=== PATIENT | female | born 1985 | race Caucasian/White ===

== ENCOUNTER 2016-09-21 13:45 | Outpatient (CLI) | payer MEDICAID | END 2016-09-21 13:46 | disposition home or self-care (01) | DX: M79.1 Myalgia (principal); G25.81 Restless legs syndrome; Z13.0 Encounter for screening for diseases of the blood and blood-forming organs and certain disorders involving the immune mechanism ==

== ENCOUNTER 2016-11-02 09:01 | Outpatient (CLI) | payer MEDICAID | END 2016-11-02 09:02 | disposition home or self-care (01) | DX: Z53.9 Procedure and treatment not carried out, unspecified reason (principal) ==

== ENCOUNTER 2016-11-05 14:27 | Outpatient (CLI) | payer MEDICAID | END 2016-11-05 14:28 | disposition home or self-care (01) | DX: M25.561 Pain in right knee (principal) ==

== ENCOUNTER 2016-11-09 16:51 | Emergency (ER) | payer MEDICAID ==
[2016-11-09] MEDS ORDERED: IBUPROFEN 800 MG TABLET PO STA (17:18)
[2016-11-09] MEDS ORDERED: ALBUTEROL 8 GM INHALER INH STA (17:18)
[2016-11-09] MEDS ORDERED: IBUPROFEN 800 MG TABLET PO ONE (17:25)
[2016-11-09] MEDS ORDERED: IPRATROPIUM/ALBUTEROL 3 ML NEB INH STA (17:26)
[2016-11-09] MEDS ORDERED: ALBUTEROL NEB 2.5 MG/3 ML INH ONE (17:28)
[2016-11-09] MEDS ORDERED: IPRATROPIUM/ALBUTEROL 3 ML NEB INH ONE (17:30)
== END 2016-11-09 17:56 | disposition home or self-care (01) ==
DX: J20.9 Acute bronchitis, unspecified (principal); J06.9 Acute upper respiratory infection, unspecified; K21.9 Gastro-esophageal reflux disease without esophagitis; F17.200 Nicotine dependence, unspecified, uncomplicated
CPT/HCPCS: 94640; 99283; A9270; J7620

== ENCOUNTER 2016-11-22 14:35 | Outpatient (CLI) | payer MEDICAID | END 2016-11-22 14:36 | disposition home or self-care (01) | DX: M47.897 Other spondylosis, lumbosacral region (principal) ==

== ENCOUNTER 2016-11-24 09:24 | Outpatient (CLI) | payer MEDICAID | END 2016-11-24 09:25 | disposition home or self-care (01) | DX: R60.0 Localized edema (principal); R73.9 Hyperglycemia, unspecified; M25.50 Pain in unspecified joint ==

== ENCOUNTER 2017-01-14 19:39 | Emergency (ER) | payer MEDICAID ==
[2017-01-14] MEDS ORDERED: oxyCOD/ACETAMIN 5 MG/325 MG TABLET PO STA (20:22)
--- NOTE | 2017-01-14 20:22 | ED Physician Documentation ---
PD HPI LOWER EXT INJURY - Stated complaint Stated Complaint: RT KNEE PX - Chief complaint Chief Complaint: Ext Problem - History obtained from History obtained from: Patient - History of Present Illness PD HPI LOW EXT INJURY LOCATION: Other (Long-standing pain behind the right patella for the last many years, negative x-rays a few months ago. Got worse today when she lightly banged her knee on something. 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, Other - Present Medications Home Medications: Ambulatory Orders Medication Instructions Recorded Confirmed Albuterol Sulfate [Proventil Hfa 1 - 2 puffs INH Q4H PRN #1 inhaler 11/09/16 Inhaler] Inhaler, Assist Devices [Aerovent 1 each MC PRN PRN #1 spacer 11/09/16 Plus] Oxycodone HCl/Acetaminophen 1 - 2 tab PO Q4H PRN #15 tablet 01/14/17 [Percocet 5-325 mg Tablet] - Allergies Allergies/Adverse Reactions: Allergies Allergy/AdvReac Type Severity Reaction Status Date / Time No Known Drug Allergies Allergy Verified 01/26/16 18:52 - Social History Does the pt smoke?: Yes Smoking Status: Current every day smoker Does the pt drink ETOH?: No Does the pt have substance abuse?: No - Immunizations Immunizations are current?: Yes Immunizations: TDAP >10years/unknown - POLST Patient has POLST: No PD ED PE NORMAL - Vitals Vital signs reviewed: Yes - General General: Alert and oriented X 3, No acute distress - Extremities Extremities: No calf tenderness / cord, Other (There is a small effusion of the right knee and she has crepitance behind the patella but no bony tenderness. Good range of motion.) - Neuro Neuro: Alert and oriented X 3, Normal speech - Psych Psych: Normal mood, Normal affect Results - Vitals Vitals: Vital Signs - 24 hr 01/14/17 19:44 Temperature 36.9 C Heart Rate 109 H Respiratory 18 Rate Blood Pressure 131/90 H O2 Saturation 98 Oxygen O2 Source Room air PD MEDICAL DECISION MAKING - ED course ED course: She seems to have chondromalacia or PFS or similar of the right knee. No new major trauma so I do not think repeat x-rays are in order but advised orthopedic follow-up. Departure - Departure Disposition: Home, Self Care Clinical Impression: Patellofemoral arthritis of right knee Condition: Good Record reviewed to determine appropriate education?: Yes Instructions: Kneecap Patella Probs Evaluate, Kneecap Probs Rehab Follow-Up: [facility] [Provider Group] Prescriptions: Oxycodone HCl/Acetaminophen [Percocet 5-325 mg Tablet] 1 - 2 tab PO Q4H PRN #15 tablet PRN Reason: Pain Comments: Your blood pressure was elevated today on check into the emergency department. This does not mean that you have hypertension, it is a common phenomenon to come to the emergency department and have elevated blood pressure. I recommend that she see her primary care physician within the week to have it rechecked when you are feeling better. Forms: Activity restrictions
[2017-01-14] MEDS ORDERED: oxyCOD/ACETAMIN 5 MG/325 MG TABLET PO ONE (20:25)
[2017-01-14 20:37] VITALS: BP 130/71
== END 2017-01-14 20:36 | disposition home or self-care (01) ==
LOC: ED 19:39
DX: M17.11 Unilateral primary osteoarthritis, right knee (principal); R03.0 Elevated blood-pressure reading, without diagnosis of hypertension; F17.200 Nicotine dependence, unspecified, uncomplicated
CPT/HCPCS: 99283; A9270

== ENCOUNTER 2017-01-31 15:10 | Outpatient (CLI) | payer MEDICAID ==
--- NOTE | 2017-02-01 12:51 | MRI Report ---
EXAM: RIGHT KNEE MRI WITHOUT CONTRAST EXAM DATE: 01/31/2017 03:49 PM. CLINICAL HISTORY: Chondromalacia patellae, right knee. COMPARISON: None. TECHNIQUE: Multiplanar, multisequence T1-weighted and fluid-sensitive sequences of the knee without c ontrast. Other: None. FINDINGS: Bones: No fractures or subluxations. No marrow edema. No bone lesions. Articular Cartilage: There is chondromalacia patella grade 2 affecting the medial patellar facet. The cartilage of the femoral trochlea, medial and lateral compartments appears normal. Medial Meniscus: The medial meniscus is intact. Lateral Meniscus: The lateral meniscus is intact. Cruciate Ligaments: The anterior and posterior cruciate ligaments are intact. Collateral Ligaments: The medial collateral and lateral collateral ligamentous structures are intact. Tendons: The patellar tendon/patellar length ratio is greater than 1.5 consistent with patella miquel. The quadriceps and patellar tendon appear normal. The popliteus tendon also appears unremarkable. Musculature: No edema or fatty atrophy. Other: There is a small joint effusion. There is a small popliteal cyst. No loose bodies. The medial and lateral retinacula are intact. The subcutaneous tissues and fat pads are unremarkable. IMPRESSION: 1. Chondromalacia patella grade 2. 2. Patella miquel. [facility] MUSCULOSKELETAL RADIOLOGY SECTION Referring Provider Line: [phone] SITE ID: [id number]
== END 2017-01-31 15:11 | disposition home or self-care (01) ==
LOC: DI 15:10
PROVIDERS: ATTEND Orthopaedic Surgery
DX: M22.41 Chondromalacia patellae, right knee (principal); M22.8X1 Other disorders of patella, right knee

== ENCOUNTER 2017-02-15 17:53 | Emergency (ER) | payer MEDICAID ==
[2017-02-15 18:05] VITALS: BP 130/87
== END 2017-02-15 18:05 | disposition left against medical advice (07) ==
LOC: ED 17:53
DX: Z53.21 Procedure and treatment not carried out due to patient leaving prior to being seen by health care provider (principal)

== ENCOUNTER 2017-03-08 11:20 | Outpatient (CLI) | payer MEDICAID ==
[2017-03-08 12:05] LABS: BASOPHILS # (AUTO) 0.1 10^3/uL (0.0-0.1); BASOPHILS % (AUTO) 0.9 %; EOSINOPHILS # (AUTO) 0.2 10^3/uL (0.0-0.7); EOSINOPHILS % (AUTO) 2.2 %; HCT - HEMATOCRIT 39.7 % (37.0-47.0); HGB - HEMOGLOBIN 13.9 g/dL (12.0-16.0); LYMPHOCYTES # (AUTO) 4.4 10^3/uL (1.5-3.5); LYMPHOCYTES % (AUTO) 41.4 %; MEAN CORPUSCULAR HEMOGLOBIN 31.5 pg (27.0-31.0); MEAN CORPUSCULAR HGB CONC 35.2 g/dL (32.0-36.0); MEAN CORPUSCULAR VOLUME 89.7 fL (81.0-99.0); MEAN PLATELET VOLUME 7.6 fL (7.9-10.8); MONOCYTES # (AUTO) 0.6 10^3/uL (0.0-1.0); MONOCYTES % (AUTO) 5.9 %; NEUTROPHILS # (AUTO) 5.3 10^3/uL (1.5-6.6); NEUTROPHILS % (AUTO) 49.6 %; NUCLEATED RED BLOOD CELLS AUTO 0.1 /100WBC; RED BLOOD COUNT 4.42 10^6/uL (4.20-5.40); RED CELL DISTRIBUTION WIDTH 13.1 % (12.0-15.0); UNCORRECTED WHITE BLOOD COUNT 10.7 x10^3/uL; WHITE BLOOD COUNT 10.7 x10^3/uL (4.8-10.8)
== END 2017-03-08 11:21 | disposition home or self-care (01) ==
LOC: LAB 11:20
PROVIDERS: ATTEND Obstetrics & Gynecology
DX: R10.30 Lower abdominal pain, unspecified (principal)
CPT/HCPCS: 36415; 85025

== ENCOUNTER 2017-05-03 08:00 | Outpatient (CLI) | payer MEDICAID | END 2017-05-03 08:01 | disposition home or self-care (01) | LOC: LAB.R 08:00 | PROVIDERS: ATTEND Obstetrics & Gynecology | DX: R10.2 Pelvic and perineal pain (principal) | CPT/HCPCS: 87070; 87086; 87491; 87591 ==

== ENCOUNTER 2017-05-22 22:31 | Emergency (ER) | payer MEDICAID ==
[2017-05-22 22:37] VITALS: BP 126/84
[2017-05-22] MEDS ORDERED: cephALEXin 250 MG CAPSULE PO STA (23:17)
[2017-05-22] MEDS ORDERED: SULFAMETH/TRIMETH DS 800/160 MG TABLET PO STA (23:17)
--- NOTE | 2017-05-22 23:19 | ED Physician Documentation ---
History of Present Illness - Stated complaint Stated Complaint: LT EYE PX - Chief complaint Chief Complaint: General - History obtained from History obtained from: Patient - History of Present Illness Timing: How many weeks ago (1) Pain level max: 3 Pain level now: 3 Improved by: nothing Worsened by: touching - Additonal information Additional information: Patient is a 31-year-old female who states that she was plucking her eyebrows 1 week ago and has since developed a raised inflamed area to the medial aspect of the left eyebrow. 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, Other - Present Medications Home Medications: Ambulatory Orders Medication Instructions Recorded Confirmed Cephalexin [Keflex] 500 mg PO Q6H #28 capsule 05/22/17 Ropinirole HCl [Requip] 1 mg PO DAILY 05/22/17 05/22/17 Sulfamethox/Trimeth 800/160 1 each PO BID #14 tablet 05/22/17 [Bactrim Ds 800/160] Valacyclovir HCl [Valacyclovir] 1,000 mg PO DAILY 05/22/17 05/22/17 - Allergies Allergies/Adverse Reactions: Allergies Allergy/AdvReac Type Severity Reaction Status Date / Time No Known Drug Allergies Allergy Verified 02/15/17 18:05 - Social History Does the pt smoke?: Yes Smoking Status: Current every day smoker Does the pt drink ETOH?: No Does the pt have substance abuse?: No - Immunizations Immunizations are current?: Yes Immunizations: TDAP >10years/unknown - POLST Patient has POLST: No PD ED PE NORMAL - Vitals Vital signs reviewed: Yes - General General: Alert and oriented X 3, No acute distress - HEENT HEENT: Other (1cm, indurated area to the medial aspect of the L eyebrow. no fluctuance. no drainage.) - Derm Derm: Warm and dry - Neuro Neuro: Alert and oriented X 3 Results - Vitals Vitals: Vital Signs - 24 hr 05/22/17 22:34 Temperature 36.5 C Heart Rate 92 Respiratory 18 Rate Blood Pressure 126/84 H O2 Saturation 99 Oxygen O2 Source Room air PD MEDICAL DECISION MAKING - ED course Complexity details: considered differential, d/w patient ED course: Patient with an indurated area to the medial aspect of the left eyebrow. No drainable abscess. Will place on antibiotics and follow-up with her PCP. Will place on Bactrim and Keflex. Patient counseled regarding signs and symptoms for which I believe and urgent re-evaluation would be necessary. Patient with good understanding of and agreement to plan and is comfortable going home at this time This document was made in part using voice recognition software. While efforts are made to proofread this document, sound alike and grammatical errors may occur. Departure - Departure Disposition: 01 Home, Self Care Clinical Impression: Cellulitis Qualifiers: Site of cellulitis: face Qualified Code(s): L03.211 - Cellulitis of face Condition: Good Instructions: ED Infec Skin Cellulitis Follow-Up: Lizz Armendariz ARNP [Primary Care Provider] - Within 1 week Prescriptions: Cephalexin [Keflex] 500 mg PO Q6H #28 capsule Sulfamethox/Trimeth 800/160 [Bactrim Ds 800/160] 1 each PO BID #14 tablet Comments: Take all antibiotics until gone. Return if you worsen. Try not to touch the infected areas.
[2017-05-22] MEDS ORDERED: cephALEXin 250 MG CAPSULE PO ONE (23:28)
[2017-05-22] MEDS ORDERED: SULFAMETH/TRIMETH DS 800/160 MG TABLET PO ONE (23:28)
== END 2017-05-22 23:27 | disposition home or self-care (01) ==
LOC: ED 22:31
DX: L03.211 Cellulitis of face (principal); F17.200 Nicotine dependence, unspecified, uncomplicated
CPT/HCPCS: 99283; A9270

== ENCOUNTER 2017-06-07 16:51 | Emergency (ER) | payer MEDICAID ==
[2017-06-07 17:09] VITALS: BP 127/81
--- NOTE | 2017-06-07 17:36 | ED Physician Documentation ---
PD HPI UPPER EXT INJURY - Stated complaint Stated Complaint: R HAND PAIN - Chief complaint Chief Complaint: Ext Problem - History obtained from History obtained from: Patient, Family - History of Present Illness Location: Right, Hand Type of injury: Blunt / blow Where injury occurred: Home Timing - onset: Today Timing - duration: Hours Timing - details: Abrupt onset, Still present Improved by: Rest, Immobilization Worsened by: Moving, Palpating Associated symptoms: Swelling. No: Weakness, Numbness Contributing factors: No: Anticoagulated Similar symptoms before: Has not had sx before Recently seen: Not recently seen - Additonal information Additional information: 31-year-old female hit her hand on a wall twice today she has pain in the dorsum of the hand over the distal third fourth and fifth metacarpals. 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, Other - Present Medications Home Medications: Ambulatory Orders Medication Instructions Recorded Confirmed Ropinirole HCl [Requip] 1 mg PO DAILY 05/22/17 06/07/17 Valacyclovir HCl [Valacyclovir] 1,000 mg PO DAILY 05/22/17 06/07/17 Omeprazole 20 mg PO DAILY 06/07/17 06/07/17 - Allergies Allergies/Adverse Reactions: Allergies Allergy/AdvReac Type Severity Reaction Status Date / Time No Known Drug Allergies Allergy Verified 02/15/17 18:05 - Social History Does the pt smoke?: Yes Smoking Status: Current every day smoker Does the pt drink ETOH?: No Does the pt have substance abuse?: No - Immunizations Immunizations are current?: Yes Immunizations: TDAP >10years/unknown - POLST Patient has POLST: No PD ED PE NORMAL - Vitals Vital signs reviewed: Yes (hypertensive) - General General: Alert and oriented X 3, No acute distress, Well developed/nourished - HEENT HEENT: Atraumatic, PERRL - Respiratory Respiratory: No respiratory distress - Derm Derm: Normal color, Warm and dry, No rash - Extremities Extremities: Other (There is some swelling and point tenderness to the distal 4th and 5th MC and the wrist is without tenderness or swelling. Distal n/v is intact. ) - Neuro Neuro: No motor deficit, No sensory deficit Eye Opening: Spontaneous Motor: Obeys Commands Verbal: Oriented GCS Score: 15 - Psych Psych: Normal mood, Normal affect Results - Vitals Vitals: Vital Signs - 24 hr 06/07/17 17:07 Temperature 37.1 C Heart Rate 77 Respiratory 18 Rate Blood Pressure 127/81 H O2 Saturation 99 Oxygen O2 Source Room air - Rads (name of study) right hand Radiology: Prelim report reviewed (Impression: Normal hand radiography.), EMP read indepedently, See rad report Procedures - Splint (location) right hand Splint applied by: Tech Type of splint: Fiberglass, Ulnar gutter Other: Patient tolerated well, No complications, Neurovascular intact, Good alignment PD MEDICAL DECISION MAKING - ED course Complexity details: reviewed results, re-evaluated patient, considered differential, d/w patient, d/w family ED course: 31-year-old female with a right hand contusion does not have fracture on x-ray examination she is placed into a ulnar gutter splint for and control and the ring on the middle finger is left in place she does have a fair amount of room on the ring proximally. Departure - Departure Disposition: 01 Home, Self Care Clinical Impression: Contusion of hand, right Qualifiers: Encounter type: initial encounter Qualified Code(s): S60.221A - Contusion of right hand, initial encounter Condition: Stable Instructions: ED Sprain Hand Follow-Up: Lizz Armendariz ARNP [Primary Care Provider] - Comments: Today in the Emergency Department your blood pressure was elevated. This can happen from the stress of the visit itself, from a current illness or circumstance or from uncontrolled hypertension. If you take blood pressure medications take your usual mediations, have your blood pressure re-checked in an appropriate setting and follow up any elevation with your primary care doctor.
--- NOTE | 2017-06-07 17:43 | XRAY Preliminary Report ---
Exam: XR HAND 3 VIEW RT IMPRESSION: Normal hand radiography. [facility] SITE ID: [id number]
--- NOTE | 2017-06-07 17:45 | XRAY Report ---
EXAM: RIGHT HAND RADIOGRAPHY EXAM DATE: 06/07/2017 05:12 PM. CLINICAL HISTORY: Fall, pain. COMPARISON: None. TECHNIQUE: 3 views. FINDINGS: Bones: Normal. No fractures or bone lesions. Joints: Normal. No subluxations. Soft Tissues: Unremarkable. IMPRESSION: Normal hand radiography. [facility] Referring Provider Line: [phone] SITE ID: [id number]
== END 2017-06-07 17:59 | disposition home or self-care (01) ==
LOC: ED 16:51
DX: S60.221A Contusion of right hand, initial encounter (principal); W19.XXXA Unspecified fall, initial encounter; W22.01XA Walked into wall, initial encounter; Y92.009 Unspecified place in unspecified non-institutional (private) residence as the place of occurrence of the external cause; R03.0 Elevated blood-pressure reading, without diagnosis of hypertension; F17.200 Nicotine dependence, unspecified, uncomplicated
CPT/HCPCS: 29125; 99282; 99283

== ENCOUNTER 2017-06-08 10:31 | Emergency (ER) | payer MEDICAID ==
[2017-06-08 10:37] VITALS: BP 122/72
--- NOTE | 2017-06-08 11:07 | ED Physician Documentation ---
PD HPI WOUND RECHECK - Stated complaint Stated Complaint: HAND PX - Chief complaint Chief Complaint: Ext Problem - Histroy obtained from History obtained from: Patient - History of Present Illness Location: Right Hand Recently seen: Emergency Dept (yesterday, with xray and splint for contusion ( no fractures). 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, Other - Present Medications Home Medications: Ambulatory Orders Medication Instructions Recorded Confirmed Ropinirole HCl [Requip] 1 mg PO DAILY 05/22/17 06/08/17 Valacyclovir HCl [Valacyclovir] 1,000 mg PO DAILY 05/22/17 06/08/17 Omeprazole 20 mg PO DAILY 06/07/17 06/08/17 HYDROcod/ACETAM 5/325 [[place] 5/325] 1 tab PO Q6H PRN #15 tablet 06/08/17 - Allergies Allergies/Adverse Reactions: Allergies Allergy/AdvReac Type Severity Reaction Status Date / Time No Known Drug Allergies Allergy Verified 02/15/17 18:05 - Social History Does the pt smoke?: Yes Smoking Status: Current every day smoker Does the pt drink ETOH?: No Does the pt have substance abuse?: No - Immunizations Immunizations are current?: Yes Immunizations: TDAP >10years/unknown - POLST Patient has POLST: No PD ED PE NORMAL - Vitals Vital signs reviewed: Yes - General General: Alert and oriented X 3, No acute distress, Well developed/nourished - Derm Derm: Normal color, Warm and dry - Extremities Extremities: Other (splint on right ulnar gutter hand, with good sensation, color and cap refill, movement of fingers. ) - Neuro Neuro: No motor deficit, No sensory deficit Results - Vitals Vitals: Vital Signs - 24 hr 06/08/17 10:35 Temperature 36.8 C Heart Rate 79 Respiratory 18 Rate Blood Pressure 122/72 O2 Saturation 99 Oxygen O2 Source Room air PD MEDICAL DECISION MAKING - ED course Complexity details: reviewed old records, considered differential (she is having pain in right hand, improved by splint but still hurts and is requesting pain med short term. Also needs work note for limited use of hand. ), d/w patient Departure - Departure Disposition: 01 Home, Self Care Clinical Impression: Aftercare for cast or splint check or change Condition: Stable Record reviewed to determine appropriate education?: Yes Follow-Up: Lizz Armendariz ARNP [Primary Care Provider] - Prescriptions: HYDROcod/ACETAM 5/325 [[place] 5/325] 1 tab PO Q6H PRN #15 tablet PRN Reason: Pain Comments: The splint as well as later use of the hand for several days to week as it improves. Continue ibuprofen or Aleve 2 or 3 times a day. Add Tylenol or hydrocodone as needed for pain. I wrote a work note for less activity with that hand. As it feels improved enough, you can discontinue use of the splint and progress activity. Forms: Activity restrictions Discharge Date/Time: 06/08/17 11:50
== END 2017-06-08 11:50 | disposition home or self-care (01) ==
LOC: ED 10:31
DX: M79.641 Pain in right hand (principal); Z46.89 Encounter for fitting and adjustment of other specified devices; F17.200 Nicotine dependence, unspecified, uncomplicated
CPT/HCPCS: 99283

== ENCOUNTER 2017-06-21 08:00 | Outpatient (CLI) | payer MEDICAID | END 2017-06-21 23:59 | disposition home or self-care (01) | LOC: LAB.R 08:00 | PROVIDERS: ATTEND Nurse Practitioner Family | DX: L02.92 Furuncle, unspecified (principal) | CPT/HCPCS: 87640 ==

== ENCOUNTER 2017-07-27 11:27 | Outpatient (CLI) | payer MEDICAID ==
--- NOTE | 2017-07-27 16:12 | Ultrasound Report ---
DATE OF SERVICE: 07/27/2017 PELVIC ULTRASOUND: 07/27/2017 CLINICAL INDICATION: Pain. TECHNIQUE: Transabdominal pelvic ultrasound performed for global evaluation. Transvaginal pelvic ultrasound performed for detailed evaluation. Real-time scanning performed and static images obtained. FINDINGS: The uterus is anteverted, measuring 8.5 x 4.9 x 3.5 cm. The endometrial echo complex measures 6 mm. There is a fundal intramural leiomyoma present, measuring 1.6 x 1.2 x 1.0 cm. The right ovary measures 3.7 x 2.6 x 1.6 cm, and demonstrates follicles. The left ovary measures 3.3 x 3.0 x 2.5 cm, and demonstrates follicles. No free fluid is present. IMPRESSION: SMALL FUNDAL INTRAMURAL LEIOMYOMA. TD: 07/27/2017 17:11
== END 2017-07-27 11:28 | disposition home or self-care (01) ==
LOC: DI 11:27
PROVIDERS: ATTEND Obstetrics & Gynecology
DX: D25.1 Intramural leiomyoma of uterus (principal)
CPT/HCPCS: 76830; 76856

== ENCOUNTER 2017-07-30 14:47 | Emergency (ER) | payer MEDICAID ==
[2017-07-30 14:53] VITALS: BP 123/78
--- NOTE | 2017-07-30 15:31 | ED Physician Documentation ---
PD HPI UPPER EXT INJURY - Stated complaint Stated Complaint: RIGHT HAND PAIN - Chief complaint Chief Complaint: Ext Problem - History obtained from History obtained from: Patient, Family - History of Present Illness Location: Right, Hand Type of injury: Blunt / blow Where injury occurred: Home Timing - onset: Last night Timing - duration: Hours Timing - details: Abrupt onset, Still present Improved by: Rest, Immobilization Worsened by: Moving, Palpating Associated symptoms: Swelling. No: Weakness, Numbness Contributing factors: No: Anticoagulated Similar symptoms before: Diagnosis (hand contusion) Recently seen: Emergency Dept - Additonal information Additional information: 31-year-old female is injured her hand 2 months ago and she is reinjured it last night striking her hand on the dryer. She has some swelling and tenderness to the distal fourth and fifth metacarpals on the right hand. 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, Other - Present Medications Home Medications: Ambulatory Orders Medication Instructions Recorded Confirmed Ropinirole HCl [Requip] 1 mg PO DAILY 05/22/17 07/30/17 Valacyclovir HCl [Valacyclovir] 1,000 mg PO DAILY 05/22/17 07/30/17 Omeprazole 20 mg PO DAILY 06/07/17 07/30/17 HYDROcod/ACETAM 5/325 [[place] 5/325] 1 - 2 ea PO Q6H PRN #15 tablet 07/30/17 - Allergies Allergies/Adverse Reactions: Allergies Allergy/AdvReac Type Severity Reaction Status Date / Time No Known Drug Allergies Allergy Verified 07/30/17 14:53 - Social History Does the pt smoke?: Yes Smoking Status: Current every day smoker Does the pt drink ETOH?: No Does the pt have substance abuse?: No - Immunizations Immunizations are current?: Yes Immunizations: TDAP >10years/unknown - POLST Patient has POLST: No PD ED PE NORMAL - Vitals Vital signs reviewed: Yes (normal ) - General General: Alert and oriented X 3, No acute distress, Well developed/nourished - HEENT HEENT: Atraumatic, PERRL, EOMI - Respiratory Respiratory: No respiratory distress - Derm Derm: Normal color, Warm and dry, No rash - Extremities Extremities: No deformity, No edema, Other (There is point tenderness over the distal 4th and 5th metacarpal and there is ecchymosis over the distal 4th. There is no cosmetic deformity of the knuckle. Distal n/v is intact ) - Psych Psych: Normal mood, Normal affect Results - Vitals Vitals: Vital Signs - 24 hr 07/30/17 14:50 Temperature 37.2 C Heart Rate 76 Respiratory 16 Rate Blood Pressure 123/78 O2 Saturation 98 Oxygen O2 Source Room air - Rads (name of study) right hand Radiology: Prelim report reviewed (Impression: 1. No acute osseous abnormalities.), EMP read indepedently, See rad report PD MEDICAL DECISION MAKING - ED course Complexity details: reviewed old records, reviewed results, re-evaluated patient , considered differential, d/w patient, d/w family ED course: 31-year-old female with a contusion of the right hand again has no evidence of fracture on plain film. She is placed into an ulnar gutter splint. Departure - Departure Disposition: 01 Home, Self Care Clinical Impression: Contusion of hand, right Qualifiers: Encounter type: initial encounter Qualified Code(s): S60.221A - Contusion of right hand, initial encounter Condition: Stable Instructions: ED Sprain Hand Follow-Up: Lizz Armendariz ARNP [Primary Care Provider] - Prescriptions: HYDROcod/ACETAM 5/325 [[place] 5/325] 1 - 2 ea PO Q6H PRN #15 tablet PRN Reason: Pain Forms: Activity restrictions
[2017-07-30] MEDS ORDERED: IBUPROFEN 600 MG TABLET PO STA (15:48)
--- NOTE | 2017-07-30 15:50 | XRAY Report ---
EXAM: RIGHT HAND RADIOGRAPHY EXAM DATE: 07/30/2017 03:37 PM. CLINICAL HISTORY: Contusion pain over distal 4th, 5th. COMPARISON: 06/07/2017. TECHNIQUE: 3 views. FINDINGS: Bones: Normal. No fractures or bone lesions. Joints: Flexion of the right fifth digit is again seen. No dislocation. Soft Tissues: No radiopaque foreign bodies. IMPRESSION: 1. No acute osseous abnormalities. [facility] Referring Provider Line: [phone] SITE ID: [id number]
== END 2017-07-30 16:09 | disposition home or self-care (01) ==
LOC: ED 14:47
DX: S60.221A Contusion of right hand, initial encounter (principal); W22.09XA Striking against other stationary object, initial encounter; Y92.018 Other place in single-family (private) house as the place of occurrence of the external cause; K21.9 Gastro-esophageal reflux disease without esophagitis; F17.200 Nicotine dependence, unspecified, uncomplicated
CPT/HCPCS: 73130; 99283; A9270

== ENCOUNTER 2017-08-08 10:23 | Outpatient (CLI) | payer MEDICAID | END 2017-08-08 10:24 | disposition home or self-care (01) | LOC: LAB.R 10:23 | PROVIDERS: ATTEND Obstetrics & Gynecology | DX: Z11.3 Encounter for screening for infections with a predominantly sexual mode of transmission (principal); D64.9 Anemia, unspecified; R82.99 Other abnormal findings in urine | CPT/HCPCS: 87491; 87591 ==

== ENCOUNTER 2017-08-08 10:39 | Outpatient (CLI) | payer MEDICAID ==
[2017-08-08 11:21] LABS: BASOPHILS # (AUTO) 0.1 10^3/uL (0.0-0.1); BASOPHILS % (AUTO) 0.8 %; EOSINOPHILS # (AUTO) 0.8 10^3/uL (0.0-0.7); EOSINOPHILS % (AUTO) 6.4 %; HGB - HEMOGLOBIN 13.1 g/dL (12.0-16.0); LYMPHOCYTES # (AUTO) 5.5 10^3/uL (1.5-3.5); LYMPHOCYTES % (AUTO) 45.8 %; MEAN CORPUSCULAR HEMOGLOBIN 31.6 pg (27.0-31.0); MEAN CORPUSCULAR HGB CONC 34.1 g/dL (32.0-36.0); MEAN CORPUSCULAR VOLUME 92.7 fL (81.0-99.0); MEAN PLATELET VOLUME 7.6 fL (7.9-10.8); MONOCYTES # (AUTO) 0.8 10^3/uL (0.0-1.0); MONOCYTES % (AUTO) 6.6 %; NEUTROPHILS # (AUTO) 4.9 10^3/uL (1.5-6.6); NEUTROPHILS % (AUTO) 40.4 %; PLT - PLATELET COUNT 335 10^3/uL (130-450); RED BLOOD COUNT 4.16 10^6/uL (4.20-5.40); RED CELL DISTRIBUTION WIDTH 13.6 % (12.0-15.0)
[2017-08-08 11:23] LABS: BILIRUBIN,URINE NEGATIVE (NEGATIVE); GLUCOSE, URINE (UA) NEGATIVE (NEGATIVE); KETONES,URINE (UA) NEGATIVE (NEGATIVE); LEUKOCYTE ESTERASE, URINE NEGATIVE (NEGATIVE); NITRITE,URINE NEGATIVE (NEGATIVE); OCCULT BLOOD,URINE SMALL (NEGATIVE); PROTEIN,URINE NEGATIVE (NEGATIVE); UROBILINOGEN,URINE 0.2 (NORMAL) E.U./dL (NORMAL)
[2017-08-08 11:24] LABS: CLARITY,URINE CLEAR (CLEAR)
[2017-08-08 11:26] LABS: BACTERIA,URINE Rare /HPF (None Seen); SQUAMOUS EPITHELIAL CELL,UR RARE Squamous (<= Few)
== END 2017-08-08 10:40 | disposition home or self-care (01) ==
LOC: LAB 10:39
PROVIDERS: ATTEND Obstetrics & Gynecology
DX: Z11.3 Encounter for screening for infections with a predominantly sexual mode of transmission (principal); D64.9 Anemia, unspecified; R82.99 Other abnormal findings in urine
CPT/HCPCS: 36415; 81001; 85025; 85651; 87086; 87491; 87591

== ENCOUNTER 2017-09-20 14:19 | Outpatient (CLI) | payer MEDICAID | END 2017-09-20 14:20 | disposition home or self-care (01) | LOC: LAB.R 14:19 | PROVIDERS: ATTEND Obstetrics & Gynecology | DX: R82.99 Other abnormal findings in urine (principal) | CPT/HCPCS: 81001; 87086 ==

== ENCOUNTER 2017-09-22 10:54 | Outpatient (CLI) | payer MEDICAID | END 2017-09-22 10:55 | LOC: LAB.R 10:54 | PROVIDERS: ATTEND Registered Nurse | DX: R10.2 Pelvic and perineal pain (principal) | CPT/HCPCS: 87086; 87491; 87591 ==

== ENCOUNTER 2017-10-25 17:05 | Outpatient (CLI) | payer MEDICAID ==
--- NOTE | 2017-10-26 10:04 | XRAY Report ---
TWO VIEW THORACIC SPINE: 10/25/2017 CLINICAL INDICATION: Back pain. FINDINGS: Frontal and lateral views of the thoracic spine demonstrate normal height and alignment of the vertebral bodies. The disk spaces are preserved. There is no evidence of fracture. No paraspinal hematoma is seen. IMPRESSION: NORMAL THORACIC SPINE. TD: 10/26/2017 10:02
--- NOTE | 2017-10-26 10:05 | XRAY Report ---
THREE VIEW LUMBAR SPINE: 10/25/2017 CLINICAL INDICATION: Pain. COMPARISON: 11/22/2016. FINDINGS: AP, lateral, coned down views of the lumbar spine demonstrate degenerative disk disease at L5-S1. There is no evidence of compression fracture or subluxation. The bowel gas pattern appears normal. IMPRESSION: DEGENERATIVE CHANGES AT L5-S1, STABLE. TD: 10/26/2017 10:04
== END 2017-10-25 17:06 | disposition home or self-care (01) ==
LOC: DI 17:05
PROVIDERS: ATTEND Family Medicine
DX: M51.37 Other intervertebral disc degeneration, lumbosacral region (principal)
CPT/HCPCS: 72070; 72100

== ENCOUNTER 2017-10-26 15:02 | Emergency (ER) | payer MEDICAID ==
[2017-10-26] MEDS ORDERED: LIDOCAINE PATCH 5% TOP PRN (16:27)
[2017-10-26] MEDS ORDERED: CYCLOBENZAPRINE 10 MG TABLET PO STA (16:27)
--- NOTE | 2017-10-26 17:33 | ED Physician Documentation ---
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, Other - Present Medications Home Medications: Ambulatory Orders Medication Instructions Recorded Confirmed Ropinirole HCl [Requip] 1 mg PO DAILY 05/22/17 07/30/17 Valacyclovir HCl [Valacyclovir] 1,000 mg PO DAILY 05/22/17 07/30/17 Omeprazole 20 mg PO DAILY 06/07/17 07/30/17 Carisoprodol [Soma] 350 mg PO Q8H PRN #15 tablet 10/26/17 Indomethacin [Indocin] 25 mg PO TIDWM PRN #15 capsule 10/26/17 traMADol [Ultram] 50 mg PO Q6H PRN #15 tablet 10/26/17 - Allergies Allergies/Adverse Reactions: Allergies Allergy/AdvReac Type Severity Reaction Status Date / Time No Known Drug Allergies Allergy Verified 10/26/17 15:23 - Social History Does the pt smoke?: Yes Smoking Status: Current every day smoker Does the pt drink ETOH?: No Does the pt have substance abuse?: No - Immunizations Immunizations are current?: Yes Immunizations: TDAP >10years/unknown - POLST Patient has POLST: No PD ED PE NORMAL - Vitals Vital signs reviewed: Yes - Neck Neck: Supple, no meningeal sign - Cardiac Cardiac: RRR - Respiratory Respiratory: No respiratory distress, Clear bilaterally - Abdomen Abdomen: Soft, Non tender, Non distended - Back Back: Other (TTP L scapula r area and pain with ROM carrington ABD an ext of shoulder) - Derm Derm: Other (no shingles rash) - Extremities Extremities: No tenderness to palpate, No edema, No calf tenderness / cord, Other (+ radial pulse and cap refill to L hand) - Neuro Neuro: No motor deficit, No sensory deficit Results - Vitals Vitals: Vital Signs - 24 hr 10/26/17 15:19 Temperature 36.9 C Heart Rate 94 Respiratory 15 Rate Blood Pressure 121/81 H O2 Saturation 100 Oxygen O2 Source Room air PD MEDICAL DECISION MAKING - ED course ED course: TTP and pain with ROM very c/w muscular etiology - no fever cough CP leg swelling abd pain to suggest other source causing referred pain applied lido patch which pt stae smade pain worse also gave flexeril has MARIELY - some narcotic and many valium rx will rx soma tramadol and indocin Departure - Departure Disposition: 01 Home, Self Care Clinical Impression: Back pain Qualifiers: Back pain location: thoracic back pain Chronicity: acute Back pain laterality: left Qualified Code(s): M54.6 - Pain in thoracic spine Condition: Good Instructions: ED Neck Back Pain General Follow-Up: Lionel Radford MD [Primary Care Provider] - Prescriptions: Carisoprodol [Soma] 350 mg PO Q8H PRN #15 tablet PRN Reason: muscle spasm Indomethacin [Indocin] 25 mg PO TIDWM PRN #15 capsule PRN Reason: Pain traMADol [Ultram] 50 mg PO Q6H PRN #15 tablet PRN Reason: Severe Pain Forms: Activity restrictions
[2017-10-26 17:56] VITALS: BP 122/84
== END 2017-10-26 17:55 | disposition home or self-care (01) ==
LOC: ED 15:02
DX: M54.6 Pain in thoracic spine (principal); F17.200 Nicotine dependence, unspecified, uncomplicated
CPT/HCPCS: 99283; A9270

== ENCOUNTER 2017-11-15 14:12 | Emergency (ER) | payer MEDICAID ==
[2017-11-15 14:21] VITALS: BP 121/81
== END 2017-11-15 15:40 | disposition left against medical advice (07) ==
LOC: ED 14:12
DX: Z53.21 Procedure and treatment not carried out due to patient leaving prior to being seen by health care provider (principal)

== ENCOUNTER 2017-11-16 16:39 | Emergency (ER) | payer MEDICAID ==
[2017-11-16 16:54] VITALS: BP 114/78
--- NOTE | 2017-11-16 18:19 | ED Physician Documentation ---
History of Present Illness - Stated complaint Stated Complaint: ABD PX/NAUSEA - Chief complaint Chief Complaint: Abd Pain - History obtained from History obtained from: Patient - History of Present Illness Timing: Other (several months) Pain level max: 9 Pain level now: 9 Improved by: nothing Worsened by: nothing - Additonal information Additional information: States that she has painful menses for the past several months. Has had ultrasounds with fibroids in her uterus in the past. Also has irregular menses. Saw Vin Carranza today from gynecology and says was sent here for ultrasound and "laparoscopy". Unable to provide any further details to me. No current bleeding. Review of Systems Ten Systems: 10 systems reviewed and negative Constitutional: denies: Fever, Chills Ears: denies: Ear pain Nose: denies: Rhinorrhea / runny nose, Congestion Throat: denies: Sore throat Cardiac: denies: Chest pain / pressure Respiratory: denies: Cough, Wheezing GI: denies: Vomiting, Diarrhea : denies: Dysuria, Frequency, Hesitancy, Now EGA Skin: denies: Rash Musculoskeletal: denies: Neck pain, Back pain Neurologic: denies: Headache PD PAST MEDICAL HISTORY - Past Medical History Cardiovascular: None Respiratory: None Endocrine/Autoimmune: None GI: GERD Psych: Anxiety Musculoskeletal: Other - Past Surgical History 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, Other - Present Medications Home Medications: Ambulatory Orders Medication Instructions Recorded Confirmed Valacyclovir HCl [Valacyclovir] 1,000 mg PO DAILY 05/22/17 07/30/17 Omeprazole 20 mg PO DAILY 06/07/17 07/30/17 Carisoprodol [Soma] 350 mg PO Q8H PRN #15 tablet 10/26/17 Hydrocodone/Acetaminophen 1 - 2 each PO Q6H PRN #14 tablet 11/16/17 [Hydrocodon-Acetaminophen 5-325] - Allergies Allergies/Adverse Reactions: Allergies Allergy/AdvReac Type Severity Reaction Status Date / Time No Known Drug Allergies Allergy Verified 11/15/17 14:21 - Social History Does the pt smoke?: Yes Smoking Status: Current every day smoker Does the pt drink ETOH?: No Does the pt have substance abuse?: No - Immunizations Immunizations are current?: Yes Immunizations: TDAP >10years/unknown - POLST Patient has POLST: No PD ED PE NORMAL - Vitals Vital signs reviewed: Yes - General General: Alert and oriented X 3, No acute distress - HEENT HEENT: Moist mucous membranes - Neck Neck: Supple, no meningeal sign - Cardiac Cardiac: RRR - Respiratory Respiratory: No respiratory distress, Clear bilaterally - Abdomen Abdomen: Soft, Non tender, Non distended - Female Female : Pt declined - Derm Derm: Warm and dry - Extremities Extremities: No edema - Neuro Neuro: Alert and oriented X 3 - Psych Psych: Normal mood, Normal affect Results - Vitals Vitals: Vital Signs - 24 hr 11/16/17 16:47 Temperature 37.2 C Heart Rate 84 Respiratory 16 Rate Blood Pressure 114/78 O2 Saturation 99 Oxygen O2 Source Room air - Labs Labs: Laboratory Tests 11/16/17 11/16/17 19:05 19:05 Urine Color YELLOW Urine Clarity CLEAR Urine pH 6.0 Ur Specific [place] 1.010 1.010 Urine Protein NEGATIVE Urine Glucose (UA) NEGATIVE Urine Ketones NEGATIVE Urine Occult Blood LARGE H Urine Nitrite NEGATIVE Urine Bilirubin NEGATIVE Urine Urobilinogen 0.2 (NORMAL) Ur Leukocyte Esterase NEGATIVE Urine RBC 0-5 Urine WBC 0-3 Ur Squamous Epith Cells MANY Squamous H Urine Bacteria Many H Ur Microscopic Review INDICATED Urine Culture Comments NOT INDICATED Urine HCG, Qual NEGATIVE PD MEDICAL DECISION MAKING - ED course Complexity details: reviewed results, re-evaluated patient, considered differential, d/w patient, d/w enrollment consultant ED course: d/w Dr. Lanza (gynecology aircraft load controller) who is going to see her next week. He states she was not sent in by Vin Posada after he spoke with her. States is scheduled for outpatient workup of her pelvic pain. We reviewed her ultrasound from July that showed the small fibroid. Patient will prescribe a small amount of pain medication for her until she can see Dr. Lanza next week. Patient is comfortable with this plan. She is well-appearing, nontoxic. Abdomen is soft, nontender nondistended. Patient counseled regarding signs and symptoms for which I believe and urgent re-evaluation would be necessary. Patient with good understanding of and agreement to plan and is comfortable going home at this time This document was made in part using voice recognition software. While efforts are made to proofread this document, sound alike and grammatical errors may occur. Departure - Departure Disposition: 01 Home, Self Care Clinical Impression: Pelvic pain Condition: Good Instructions: ED Pelvic Pain O Follow-Up: Felipe Lanza MD [Provider Admit Priv/Credential] - 11/24/17 (as scheduled) Prescriptions: Hydrocodone/Acetaminophen [Hydrocodon-Acetaminophen 5-325] 1 - 2 each PO Q6H PRN #14 tablet PRN Reason: pain Comments: Return if you worsen. Make sure to follow-up with Dr. Lanza for further evaluation. Do not drink alcohol or drive while on narcotic pain medicine. Note that many narcotic pain relievers also contain tylenol/acetaminophen. Please ensure that your total dose of acetaminophen from all sources does not exceed 3 grams (3000mg) per day. You may constipated on this medication, take a stool softener such as "Colace" twice a day while you are on it. Also recommend a [id number] laxative such as senna or MiraLAX any day that you do not have a bowel movement. If you received narcotic pain medication in the emergency department, do not drive or operate machinery for the next 24 hours. Discharge Date/Time: 11/16/17 19:30
[2017-11-16] MEDS ORDERED: HYDROcod/ACETAM 5/325 MG TABLET PO STA (19:11)
[2017-11-16 19:16] LABS: BILIRUBIN,URINE NEGATIVE (NEGATIVE); GLUCOSE, URINE (UA) NEGATIVE (NEGATIVE); KETONES,URINE (UA) NEGATIVE (NEGATIVE); LEUKOCYTE ESTERASE, URINE NEGATIVE (NEGATIVE); NITRITE,URINE NEGATIVE (NEGATIVE); OCCULT BLOOD,URINE LARGE (NEGATIVE); PROTEIN,URINE NEGATIVE (NEGATIVE); UROBILINOGEN,URINE 0.2 (NORMAL) E.U./dL (NORMAL)
[2017-11-16 19:20] LABS: CLARITY,URINE CLEAR (CLEAR); HCG UR QUAL NEGATIVE
[2017-11-16 19:33] LABS: BACTERIA,URINE Many /HPF (None Seen); RBC,URINE 0-5 /HPF (0-5); SQUAMOUS EPITHELIAL CELL,UR MANY Squamous (<= Few)
== END 2017-11-16 19:30 | disposition home or self-care (01) ==
LOC: ED 16:39
DX: R10.2 Pelvic and perineal pain (principal); F41.9 Anxiety disorder, unspecified; F17.200 Nicotine dependence, unspecified, uncomplicated
CPT/HCPCS: 81001; 81025; 99283; A9270; 81003; 87086

== ENCOUNTER 2017-11-21 08:00 | Outpatient (CLI) | payer MEDICAID | END 2017-11-21 08:01 | disposition home or self-care (01) | LOC: LAB.R 08:00 | PROVIDERS: ATTEND Obstetrics & Gynecology | DX: Z11.3 Encounter for screening for infections with a predominantly sexual mode of transmission (principal) | CPT/HCPCS: 87491; 87591 ==

== ENCOUNTER 2017-11-21 12:11 | Outpatient (CLI) | payer MEDICAID ==
[2017-11-21 12:43] LABS: GLUCOSE, URINE (UA) NEGATIVE (NEGATIVE); KETONES,URINE (UA) NEGATIVE (NEGATIVE); LEUKOCYTE ESTERASE, URINE NEGATIVE (NEGATIVE); NITRITE,URINE NEGATIVE (NEGATIVE); OCCULT BLOOD,URINE MODERATE (NEGATIVE); PROTEIN,URINE TRACE mg/dL (NEGATIVE); UROBILINOGEN,URINE 0.2 (NORMAL) E.U./dL (NORMAL)
[2017-11-21 12:47] LABS: CLARITY,URINE CLEAR (CLEAR)
[2017-11-21 12:48] LABS: BILIRUBIN,URINE NEGATIVE (NEGATIVE); ICTOTEST,URINE NEGATIVE
[2017-11-21 12:50] LABS: BASOPHILS # (AUTO) 0.1 10^3/uL (0.0-0.1); BASOPHILS % (AUTO) 0.5 %; EOSINOPHILS # (AUTO) 0.1 10^3/uL (0.0-0.7); HGB - HEMOGLOBIN 13.7 g/dL (12.0-16.0); LYMPHOCYTES # (AUTO) 3.5 10^3/uL (1.5-3.5); LYMPHOCYTES % (AUTO) 28.5 %; MEAN CORPUSCULAR HEMOGLOBIN 31.5 pg (27.0-31.0); MEAN CORPUSCULAR HGB CONC 34.4 g/dL (32.0-36.0); MEAN CORPUSCULAR VOLUME 91.4 fL (81.0-99.0); MEAN PLATELET VOLUME 7.3 fL (7.9-10.8); MONOCYTES # (AUTO) 0.5 10^3/uL (0.0-1.0); MONOCYTES % (AUTO) 3.8 %; NEUTROPHILS # (AUTO) 8.2 10^3/uL (1.5-6.6); NEUTROPHILS % (AUTO) 66.2 %; PLT - PLATELET COUNT 411 10^3/uL (130-450); RED BLOOD COUNT 4.34 10^6/uL (4.20-5.40); RED CELL DISTRIBUTION WIDTH 13.5 % (12.0-15.0); WHITE BLOOD COUNT 12.4 x10^3/uL (4.8-10.8)
[2017-11-21 13:28] LABS: ALBUMIN 4.4 g/dL (3.2-5.5); ALBUMIN/GLOBULIN RATIO 1.4 (1.0-2.2); BILIRUBIN,TOTAL 0.5 mg/dL (0.2-1.0); CREATININE 0.5 mg/dL (0.4-1.0); TOTAL PROTEIN 7.5 g/dL (6.7-8.2)
== END 2017-11-21 12:12 | disposition home or self-care (01) ==
LOC: LAB 12:11
PROVIDERS: ATTEND Obstetrics & Gynecology
DX: Z01.812 Encounter for preprocedural laboratory examination (principal); Z11.3 Encounter for screening for infections with a predominantly sexual mode of transmission
CPT/HCPCS: 36415; 80053; 81003; 81025; 84702; 85025; 86850; 86900; 86901; 87491; 87591

== ENCOUNTER 2017-11-23 08:46 | Day surgery (SDC) | payer MEDICAID ==
[2017-11-23 09:26] LABS: HCG UR QUAL NEGATIVE
[2017-11-23] MEDS ORDERED: LACTATED RINGERS 1,000 ML IV ONE ×2 (09:28→12:23)
[2017-11-23] MEDS ORDERED: BUPIVACAINE 0.25%-EPI 1:200000 PF 30 ML VIAL ONE (10:55)
[2017-11-23] MEDS ORDERED: METHYLENE BLUE 0.5% 50 MG/10 ML AMPULE ONE (10:55)
[2017-11-23] MEDS ORDERED: BUPIVACAINE 0.25%-EPI 1:200000 PF 10 ML VIAL SUBQ ONE (12:01)
[2017-11-23] MEDS ORDERED: ONDANSETRON 4 MG/2 ML VIAL IVP ONE (12:20)
[2017-11-23] MEDS ORDERED: KETOROLAC 30 MG/ML VIAL IVP ONE (12:20)
[2017-11-23] MEDS ORDERED: PROPOFOL 200 MG/20 ML VIAL IVP ONE (12:20)
[2017-11-23] MEDS ORDERED: LIDOCAINE-MPF 2% 5 ML VIAL IM ONE (12:20)
[2017-11-23] MEDS ORDERED: ROCURONIUM 50 MG/5 ML VIAL IVP ONE (12:20)
[2017-11-23] MEDS ORDERED: DEXAMETHASONE 4 MG/ML VIAL IVP ONE (12:20)
[2017-11-23] MEDS ORDERED: MIDAZOLAM 2 MG/2 ML VIAL IVP ONE (12:20)
[2017-11-23] MEDS ORDERED: GLYCOPYRROLATE 1 MG/5 ML VIAL IVP ONE (12:20)
[2017-11-23] MEDS ORDERED: fentaNYL 100 MCG/2 ML VIAL IVP ONE (12:20)
[2017-11-23] MEDS ORDERED: NEOSTIGMINE 1 MG/1 ML 10 ML MDV IVP ONE (12:20)
[2017-11-23] MEDS ORDERED: BUPIVACAINE 0.25% PF 30 ML VIAL ONE (12:36)
--- NOTE | 2017-11-23 12:48 | OPERATIVE REPORT ---
Operative Report - General Procedure Date: 11/23/17 Planned Procedure: Diagnostic laparoscopy and cystoscopy Pre-Op Diagnosis: Pelvic pain; bilateral lower quadrant pain; Menorrhagia Procedure Performed: Diagnostic laparoscopy; electro-ablation of endometriosis; cystoscopy; dilatation and curettage Post Op Diagnosis: Endometriosis involving the left ovary superior sacral spinous ligament and - Procedure Note Primary Surgeon: Felipe Arzate MD, FACOG Anesthesia Provider: Richard Martinez & Iggy Zabala, certified nurse director translation Anesthesia Technique: General ET tube Pathology: Dilatation and curettage specimen IV Fluids (mL): 800 Estimated Blood Loss (mL): 10 Urine Output (mL): 35 Complications: None - Other Other Information/Narrative: Exam under anesthesia finds no vulvar lesions. There is no significant cystorectocele and the vaginal vault is well supported. The cervix has no lesions and no purulent discharge noted Laparoscopy finds the uterus to be of normal contour without any injection or inflammation. The left tube is status post salpingectomy and absent. Right tube is preserved and has no inflammatory changes or adhesions. Chromopertubation finds the right tube open. Both ovaries are with early cystic activity with a residual corpus luteum resolve on the left. On the left ovary there is speckling of petechia and powder burn endometriosis. Additionally there is powder burn endometriosis and petechiae in the left ovarian fossa superior to the ureter and extending down to the superior aspect of the uterosacral ligament. Cul-de-sac has no add no endometriosis. The ovary appears to be normal without injection or edema. Liver edges are sharp however the liver has speckling showing some fatty change. Gallbladder was not seen and presumed presumed normal. The bladder dome was free of endometriosis. Cystoscopy shows normal urethra. The trigone of the bladder has cystitis cystica but a systematic examination finds no evidence of interstitial cystitis. Both the right and left ureteral orifices are open and spilling clear urine. Doan bag shows it to be cloudy and therefore cultures were sent.
[2017-11-23 12:54] LABS: BILIRUBIN,URINE NEGATIVE (NEGATIVE); GLUCOSE, URINE (UA) NEGATIVE (NEGATIVE); KETONES,URINE (UA) NEGATIVE (NEGATIVE); LEUKOCYTE ESTERASE, URINE NEGATIVE (NEGATIVE); NITRITE,URINE NEGATIVE (NEGATIVE); OCCULT BLOOD,URINE TRACE-INTA (NEGATIVE); PROTEIN,URINE TRACE mg/dL (NEGATIVE); UROBILINOGEN,URINE 0.2 (NORMAL) E.U./dL (NORMAL)
[2017-11-23 12:55] LABS: CLARITY,URINE CLOUDY (CLEAR)
[2017-11-23 13:06] LABS: AMORPHOUS SEDIMENT,UR Moderate /LPF; BACTERIA,URINE Many /HPF (None Seen); SQUAMOUS EPITHELIAL CELL,UR RARE Squamous (<= Few)
[2017-11-23] MEDS: HYDROmorphone 1 MG/ML CARPUJECT ONE ×2 (13:20→13:25)
[2017-11-23] MEDS ORDERED: ACETAMINOPHEN 1,000 MG/100 ML 100 ML IV ONE (13:37)
[2017-11-23 13:59] VITALS: BP 118/72
[2017-11-23] MEDS ORDERED: oxyCOD/ACETAMIN 5 MG/325 MG TABLET PO ONE (14:07)
--- NOTE | 2017-11-23 15:05 | OPERATIVE REPORT ---
DATE OF SERVICE: 11/23/2017 Physician: Felipe Arzate MD PREOPERATIVE DIAGNOSIS: Pelvic pain and bilateral lower quadrant pain; menorrhagia. POSTOPERATIVE DIAGNOSIS: Endometriosis involving left ovary, superior aspect of the sacrospinous ligament and left ovarian fossa; await D and C specimen. PROCEDURES PERFORMED: Diagnostic laparoscopy; electro-ablation of endometriosis ; cystoscopy; dilatation and curettage (fractional). SURGEON: Felipe Arzate MD, FACOG, FICS. ANESTHESIOLOGIST: Katerin Martinez, Certified Nurse Photo Checker, and Iggy Zabala , Certified Nurse Photo Checker. ANESTHESIA: General with ET tube placed. PATHOLOGY: #1. Dilatation and curettage, specimen. #2 urinalysis and culture. COMPLICATIONS: None. IV FLUIDS: 800 mL ESTIMATED BLOOD LOSS: 10 mL or less. URINE OUTPUT: 35 mL, cloudy, specimen sent. FINDINGS 1. Exam under anesthesia finds no vulvar lesions. There is no significant cystorectocele and the vaginal vault is well supported. The cervix has no lesions, overt cervicitis, or purulent discharge. 2. Laparoscopy finds the uterus to be of normal size and contour without any injection or inflammation. The left tube was status post salpingectomy and completely absent. Right tube is preserved and has no inflammatory changes or adhesive disease. Chromopertubation finds the right tube open. Both ovaries are normal size, approximately 3 x 2.5 x 2 cm apiece. There is early cystic activity present. On the left ovary, there is a resolving corpus luteum. The left ovary exhibits evidence of endometriosis including speckles of petechia and powder burn lesions. These powder burn lesions extend into the left ovarian fossa superior to the ureter and down towards the superior aspect of the left uterosacral ligament. The cul- de-sac has no endometriosis. The right ovary appears to be normal without inflammation, edema or suspicion of endometriosis. Liver and edges are sharp; however, liver has a speckling of fatty change. Gallbladder was not seen and presumably normal. 3. Bladder dome was free of endometriosis. Cystoscopy demonstrates normal urethra. The trigone of the bladder has cystitis cystica, but systematic examination finds no evidence of interstitial cystitis. Both right and left ureteral orifices are open and freely spilling urine. Doan bag shows urine to be cloudy, and therefore, cultures were sent. INDICATIONS: Prior to the procedure, the mechanics, risks, benefits and alternatives to laparoscopy and cystoscopy were explained to the patient. All questions were answered. Informed consent paperwork was signed. TECHNIQUE: The patient was brought to the operating room, placed in supine position for administration of general anesthesia. She was uneventfully induced and intubated. She was prepped and draped in a customary sterile fashion. A timeout procedure was done per protocol. Doan was uneventfully placed. Dilatation and curettage: Clamshell speculum was placed into the vagina and opened to reveal the cervix. The anterior cervical lip was grasped with a single-tooth tenaculum. Gentle introduction of Hegar probes allowed us to dilate to Hegar size 6. Endocervical curettings were taken. Next, medium size curet was introduced and all quadrants of the uterine cavity sampled. This concluded D and C. A HUMI uterine manipulator was then placed. Attention was then turned to laparoscopy. A small incision was placed under the umbilical skin fold and a 5 mm Visiport trocar was inserted under direct visualization. The abdomen was insufflated with CO2 gas under 12 mm of pressure. Right and left lower quadrant 5 mm operating ports were placed uneventfully. The abdomen was inspected and photographed. Reference findings section and intraoperative photographs. An area of endometriosis was discovered in the left ovarian fossa and surface of the left ovary. The ovary was grasped with a prestige clamp, laparoscopic forceps and stabilized. Next, a monopolar cautery hook was introduced in the abdominal cavity and settings were 30 riley cutting power. Next, the areas of endometriosis were ablated using monopolar cautery. Care was taken to stay away from the ureter and major vessels. It is estimated that 85% to 90% of the endometriosis was treated. At this point, the CO2 was let out of the abdomen and 500 mL of sterile normal saline introduced with 20 mL of 0.25% plain Marcaine. All gas was evacuated and the trocars removed. All sponge, needle and instrument counts were confirmed as correct. The skin wounds were closed with interrupted subcuticular stitches of 4-0 Monocryl. Additional 0.25 % Marcaine with epinephrine was injected into the wounds for comfort. The final dressing was Dermabond. At this point, the uterine manipulator was removed. The Doan was removed and preparations were made for cystoscopy. A 70-degree video cystoscopy was performed. The 70- degree cystoscope was uneventfully inserted through the urethra and the bladder systematically inspected and photographed. There was no evidence of interstitial cystitis dysplasia or tumor. All cystoscopy fluid was drained and all instruments were removed. The patient was uneventfully aroused from general anesthesia and taken to the recovery room in good condition. All sponge, needle and instrument counts were confirmed as correct. The patient was given complete wound care and self-care instructions. She is instructed to call back for fever, foul discharge, or abdominal pain. DISCHARGE MEDICATIONS 1. Motrin 600 hours. 2. Percocet 5/325 one tab q. p.r.n. breakthrough pain. 3. Colace 100 mg b.i.d. Followup will be in 2 weeks to review pathology. cc: CLAIRE Walker CNM TD: 11/23/2017 13:32 MTDD
== END 2017-11-23 08:47 | disposition home or self-care (01) ==
LOC: SDS 08:46
PROVIDERS: ATTEND Obstetrics & Gynecology
PROC: 0TJB8ZZ Inspection of Bladder, Via Natural or Artificial Opening Endoscopic (ICD-10-PCS; 2017-11-23)
PROC: 0UDB7ZX Extraction of Endometrium, Via Natural or Artificial Opening, Diagnostic (ICD-10-PCS; 2017-11-23)
PROC: 0U514ZZ Destruction of Left Ovary, Percutaneous Endoscopic Approach (ICD-10-PCS; principal; 2017-11-23 10:00)
DX: N80.1 Endometriosis of ovary (principal); N80.3 Endometriosis of pelvic peritoneum
CPT/HCPCS: 52000; 58120; 58662; 81001; 81025; 87086; A9270; J0131; J1170; J7120; 81003; 88305

== ENCOUNTER 2017-12-16 12:00 | Outpatient (CLI) | payer MEDICAID | END 2017-12-16 12:01 | disposition home or self-care (01) | LOC: LAB 12:00 | PROVIDERS: ATTEND Obstetrics & Gynecology | DX: Z32.00 Encounter for pregnancy test, result unknown (principal) | CPT/HCPCS: 36415; 84702 ==

== ENCOUNTER 2018-09-04 12:17 | Emergency (ER) | payer MEDICAID ==
[2018-09-04 12:40] VITALS: BP 142/85
[2018-09-04 13:02] LABS: HCG UR QUAL NEGATIVE
--- NOTE | 2018-09-04 15:05 | XRAY Report ---
Reason: Trauma Procedure Date: 09/04/2018 Accession Number: [id number] / [id number] Procedure: XR - Hand 3 View RT CPT Code: FULL RESULT: EXAM: RIGHT HAND RADIOGRAPHY, 3 VIEWS EXAM DATE: 09/04/2018 02:13 PM. CLINICAL HISTORY: 32-year-old female post right hand injury. COMPARISON: Hand 3 view right 06/07/2017 5:12 PM 09/04/2018 2:12 PM. TECHNIQUE: Frontal, lateral and oblique views. FINDINGS: Bones: Normal. No fractures or bone lesions. Joints: Normal. No subluxations. Soft Tissues: Normal. No soft tissue swelling. IMPRESSION: Normal examination. No posttraumatic abnormality noted. RADIA
--- NOTE | 2018-09-04 15:26 | ED Physician Documentation ---
PD HPI UPPER EXT INJURY - Stated complaint Stated Complaint: R HAND INJ - Chief complaint Chief Complaint: Ext Problem - History obtained from History obtained from: Patient - History of Present Illness Location: Right, Hand Type of injury: Blunt / blow (hit hand on porch as she was moving quickly) Where injury occurred: Home Timing - onset: Last night Worsened by: Moving, Palpating Associated symptoms: Swelling, Discolored (bruising dorsum hand and lateral fingers.). 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, Other - Present Medications Home Medications: Ambulatory Orders Medication Instructions Recorded Confirmed Valacyclovir HCl [Valacyclovir] 1,000 mg PO DAILY 05/22/17 11/23/17 Omeprazole 20 mg PO DAILY 06/07/17 11/23/17 Gabapentin 300 mg PO 09/04/18 Naproxen 500 mg PO BID #20 tablet 09/04/18 - Allergies Allergies/Adverse Reactions: Allergies Allergy/AdvReac Type Severity Reaction Status Date / Time No Known Drug Allergies Allergy Verified 09/04/18 12:40 - Social History Does the pt smoke?: Yes Smoking Status: Current every day smoker Does the pt drink ETOH?: No Does the pt have substance abuse?: No - Immunizations Immunizations are current?: Yes Immunizations: TDAP >10years/unknown - POLST Patient has POLST: No PD ED PE NORMAL - Vitals Vital signs reviewed: Yes - General General: Alert and oriented X 3, No acute distress, Well developed/nourished - Derm Derm: Normal color, Warm and dry - Extremities Extremities: Other (right hand dorsum with bruising, swelling, tenderness ulnar side hand and litte/ring fingers. No gross deformity. ROM guarded by pain/swellling. ) - Neuro Neuro: No motor deficit, No sensory deficit Results - Vitals Vitals: Oxygen O2 Source Room air - Labs Labs: Laboratory Tests 09/04/18 12:50 Ur Specific [place] 1.015 Urine HCG, Qual NEGATIVE - Rads (name of study) right hand Radiology: Prelim report reviewed (no fractures) PD MEDICAL DECISION MAKING - ED course Complexity details: reviewed results, considered differential, d/w patient Departure - Departure Disposition: 01 Home, Self Care Clinical Impression: Hand contusion Qualifiers: Encounter type: initial encounter Laterality: right Qualified Code(s): S60.221A - Contusion of right hand, initial encounter Condition: Stable Record reviewed to determine appropriate education?: Yes Instructions: ED Contusion Hand Follow-Up: Joaquina Urbano ARNP [Primary Care Provider] - [facility] [Provider Group] Prescriptions: Naproxen 500 mg PO BID #20 tablet Comments: Rest Brian wrap ice and elevate the hand to reduce swelling. The bruising should resolve over several days to week. The swelling should decrease over a few days. I would anticipate improvement in the pain and function as the swelling goes down. Follow-up with orthopedics if not mostly better by a week. Discharge Date/Time: 09/04/18 16:04
[2018-09-04] MEDS ORDERED: NAPROXEN 250 MG TABLET PO STA (15:56)
== END 2018-09-04 16:04 | disposition home or self-care (01) ==
LOC: ED 12:17
DX: S60.221A Contusion of right hand, initial encounter (principal); W22.09XA Striking against other stationary object, initial encounter; Y92.008 Other place in unspecified non-institutional (private) residence as the place of occurrence of the external cause; F17.200 Nicotine dependence, unspecified, uncomplicated
CPT/HCPCS: 73130; 81025; 99282; 99283; A9270

== ENCOUNTER 2018-11-26 17:29 | Emergency (ER) | payer MEDICAID ==
--- NOTE | 2018-11-26 17:51 | ED Physician Documentation ---
History of Present Illness - Stated complaint Stated Complaint: ABD CRAMPING - Chief complaint Chief Complaint: Abd Pain - History obtained from History obtained from: Patient, Family - History of Present Illness Timing: Today Pain level max: 5 Pain level now: 4 - Additonal information Additional information: 32-year-old female, 5 para 1 presents to the emergency department with positive test 2 days ago. Having left lower quadrant abdominal pain today. No vomiting. No diarrhea. No vaginal bleeding. Has had 2 abortions in the past. Also had a ectopic in the past. Has had nausea but no vomiting. States she has breast tenderness as well. 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, Other - Present Medications Home Medications: Ambulatory Orders Medication Instructions Recorded Confirmed Valacyclovir HCl [Valacyclovir] 1,000 mg PO DAILY 05/22/17 11/23/17 Omeprazole 20 mg PO DAILY 06/07/17 11/23/17 Gabapentin 300 mg PO 09/04/18 - Allergies Allergies/Adverse Reactions: Allergies Allergy/AdvReac Type Severity Reaction Status Date / Time No Known Drug Allergies Allergy Verified 11/26/18 17:34 - Social History Does the pt smoke?: Yes Smoking Status: Current every day smoker Does the pt drink ETOH?: No Does the pt have substance abuse?: No - Immunizations Immunizations are current?: Yes Immunizations: TDAP >10years/unknown - POLST Patient has POLST: No PD ED PE NORMAL - Vitals Vital signs reviewed: Yes - General General: Alert and oriented X 3, No acute distress - HEENT HEENT: Moist mucous membranes - Neck Neck: Supple, no meningeal sign - Cardiac Cardiac: RRR - Respiratory Respiratory: No respiratory distress, Clear bilaterally - Abdomen Abdomen: Soft, Other (Tender to palpation suprapubic and left lower quadrant. No peritoneal signs. Otherwise normal exam) - Derm Derm: Warm and dry - Extremities Extremities: No edema - Neuro Neuro: Alert and oriented X 3 - Psych Psych: Normal mood, Normal affect Results - Vitals Vitals: Vital Signs - 24 hr 11/26/18 11/26/18 11/26/18 17:32 19:27 20:55 Temperature 36.8 C Heart Rate 78 70 70 Respiratory 15 14 14 Rate Blood Pressure 119/65 118/72 118/74 O2 Saturation 100 100 100 Oxygen O2 Source Room air - Labs Labs: Laboratory Tests 11/26/18 11/26/18 11/26/18 17:44 17:50 17:50 WBC 12.5 H RBC 4.35 Hgb 13.9 Hct 39.8 MCV 91.4 MCH 31.9 H MCHC 34.9 RDW 12.9 Plt Count 375 MPV 7.1 L Neut # (Auto) 7.4 H Lymph # (Auto) 4.2 H [place] # (Auto) 0.6 Eos # (Auto) 0.3 Baso # (Auto) 0.1 Absolute Nucleated RBC 0.01 Nucleated RBC % 0.1 Sodium 137 Potassium 3.6 Chloride 100 L Carbon Dioxide 27 Anion Gap 10.0 BUN 12 Creatinine 0.6 Estimated GFR (MDRD) 117 Glucose 89 Calcium 9.7 Total Bilirubin 0.5 AST 16 ALT 12 Alkaline Phosphatase 53 Total Protein 7.7 Albumin 4.6 Globulin 3.1 Albumin/Globulin Ratio 1.5 Lipase 43 HCG, Quant Urine Color YELLOW Urine Clarity CLEAR Urine pH 6.0 Ur Specific [place] 1.015 Urine Protein NEGATIVE Urine Glucose (UA) NEGATIVE Urine Ketones NEGATIVE Urine Occult Blood TRACE-INTA Urine Nitrite NEGATIVE Urine Bilirubin NEGATIVE Urine Urobilinogen 0.2 (NORMAL) Ur Leukocyte Esterase NEGATIVE Ur Microscopic Review NOT INDICATED Urine Culture Comments NOT INDICATED 11/26/18 17:50 WBC RBC Hgb Hct MCV MCH MCHC RDW Plt Count MPV Neut # (Auto) Lymph # (Auto) [place] # (Auto) Eos # (Auto) Baso # (Auto) Absolute Nucleated RBC Nucleated RBC % Sodium Potassium Chloride Carbon Dioxide Anion Gap BUN Creatinine Estimated GFR (MDRD) Glucose Calcium Total Bilirubin AST ALT Alkaline Phosphatase Total Protein Albumin Globulin Albumin/Globulin Ratio Lipase HCG, Quant 334.59 Urine Color Urine Clarity Urine pH Ur Specific [place] Urine Protein Urine Glucose (UA) Urine Ketones Urine Occult Blood Urine Nitrite Urine Bilirubin Urine Urobilinogen Ur Leukocyte Esterase Ur Microscopic Review Urine Culture Comments - Rads (name of study) Pelvic ultrasound Radiology: Prelim report reviewed, EMP read contemporaneously, See rad report (No evidence of intrauterine gestation. 2. No suspicious adnexal masses are seen. 3. Ovaries are normal in size and vascularity. There is a right corpus luteal cyst. 4. Collective findings in a patient may represent early intrauterine , recent , or occult ectopic . ) PD MEDICAL DECISION MAKING - ED course Complexity details: reviewed results, re-evaluated patient, considered differential, d/w patient, d/w family ED course: 32-year-old female with what appears to be an early IUP. Has an appointment with OB on Tuesday and will repeat her hCG then. No evidence of ectopic this time. Ectopic precautions given at bedside. Patient counseled regarding signs and symptoms for which I believe and urgent re-evaluation would be necessary. Patient with good understanding of and agreement to plan and is comfortable going home at this time This document was made in part using voice recognition software. While efforts are made to proofread this document, sound alike and grammatical errors may occur. Departure - Departure Disposition: 01 Home, Self Care Clinical Impression: Normal Qualifiers: Trimester: first trimester Qualified Code(s): Z34.91 - Encounter for supervision of normal , unspecified, first trimester Condition: Good Instructions: ED Abdominal Pain Rule Out Ectopic, ED Care Follow-Up: Joaquina Urbano ARNP [Primary Care Provider] - Within 1 week Comments: Follow-up with OB as scheduled on Tuesday. You should have a repeat hCG at that time. Your hCG was approximately 350 today. Return for worsening pain, vomiting or fevers. Discharge Date/Time: 11/26/18 20:54
[2018-11-26 18:10] LABS: BASOPHILS # (AUTO) 0.1 10^3/uL (0.0-0.1); BASOPHILS % (AUTO) 0.5 %; EOSINOPHILS # (AUTO) 0.3 10^3/uL (0.0-0.7); EOSINOPHILS % (AUTO) 2.1 %; HGB - HEMOGLOBIN 13.9 g/dL (12.0-16.0); LYMPHOCYTES # (AUTO) 4.2 10^3/uL (1.5-3.5); LYMPHOCYTES % (AUTO) 33.4 %; MEAN CORPUSCULAR HEMOGLOBIN 31.9 pg (27.0-31.0); MEAN CORPUSCULAR HGB CONC 34.9 g/dL (32.0-36.0); MEAN CORPUSCULAR VOLUME 91.4 fL (81.0-99.0); MEAN PLATELET VOLUME 7.1 fL (7.9-10.8); MONOCYTES # (AUTO) 0.6 10^3/uL (0.0-1.0); MONOCYTES % (AUTO) 4.7 %; NEUTROPHILS # (AUTO) 7.4 10^3/uL (1.5-6.6); NEUTROPHILS % (AUTO) 59.3 %; PLT - PLATELET COUNT 375 10^3/uL (130-450); RED BLOOD COUNT 4.35 10^6/uL (4.20-5.40); RED CELL DISTRIBUTION WIDTH 12.9 % (12.0-15.0); WHITE BLOOD COUNT 12.5 x10^3/uL (4.8-10.8)
[2018-11-26 18:11] LABS: BILIRUBIN,URINE NEGATIVE (NEGATIVE); GLUCOSE, URINE (UA) NEGATIVE (NEGATIVE); KETONES,URINE (UA) NEGATIVE (NEGATIVE); LEUKOCYTE ESTERASE, URINE NEGATIVE (NEGATIVE); NITRITE,URINE NEGATIVE (NEGATIVE); OCCULT BLOOD,URINE TRACE-INTA (NEGATIVE); PROTEIN,URINE NEGATIVE (NEGATIVE); UROBILINOGEN,URINE 0.2 (NORMAL) E.U./dL (NORMAL)
[2018-11-26 18:12] LABS: CLARITY,URINE CLEAR (CLEAR)
[2018-11-26 18:17] LABS: ALBUMIN 4.6 g/dL (3.2-5.5); ALBUMIN/GLOBULIN RATIO 1.5 (1.0-2.2); BILIRUBIN,TOTAL 0.5 mg/dL (0.2-1.0); CALCIUM 9.7 mg/dL (8.5-10.3); CREATININE 0.6 mg/dL (0.4-1.0); TOTAL PROTEIN 7.7 g/dL (6.7-8.2)
--- NOTE | 2018-11-26 19:57 | Ultrasound Report ---
Reason: + preg test, LLQ abd pain, h/o ectopic Procedure Date: 11/26/2018 Accession Number: [id number] / [id number] Procedure: US - OB First Trimester CPT Code: FULL RESULT: EXAM: PELVIC ULTRASOUND ULTRASOUND OB FIRST TRIMESTER EXAM DATE: 11/26/2018 06:43 PM. CLINICAL HISTORY: + preg test, LLQ abd pain, h/o ectopic. COMPARISON: None. TECHNIQUE: Realtime transabdominal pelvic scan performed to identify the uterus and adnexa and as an overview of other pelvic structures, followed by transvaginal scan to provide greater detail of the uterus and adnexa, with static image documentation. FINDINGS: Uterus: Length 8.2 cm. Anteverted position. Normal overall size and echotexture. Masses: None. Endometrium: 6 mm. No evidence of intrauterine gestation. Cervix: Unremarkable. Right Ovary: 3.7 x 2.4 x 3.2 cm, volume 14.8 cc. There is a right corpus luteal cyst. No suspicious adnexal masses are seen. Left Ovary: 1.9 x 1.8 x 1.8 cm, volume 3.4 cc. Normal echotexture and blood flow. Free Fluid: None. Other: None. IMPRESSION: 1. No evidence of intrauterine gestation. 2. No suspicious adnexal masses are seen. 3. Ovaries are normal in size and vascularity. There is a right corpus luteal cyst. 4. Collective findings in a patient may represent early intrauterine , recent , or occult ectopic . RADIA
[2018-11-26 20:56] VITALS: BP 118/74
== END 2018-11-26 20:54 | disposition home or self-care (01) ==
LOC: ED 17:29
DX: Z34.91 Encounter for supervision of normal pregnancy, unspecified, first trimester (principal); F17.200 Nicotine dependence, unspecified, uncomplicated
CPT/HCPCS: 36415; 76801; 76817; 80053; 81001; 81003; 83690; 84702; 85025; 87086; 99283

== ENCOUNTER 2018-12-08 11:12 | Outpatient (CLI) | payer MEDICAID ==
--- NOTE | 2018-12-08 14:30 | Ultrasound Report ---
Reason: HX OF ECTOPIC Procedure Date: 12/08/2018 Accession Number: [id number] / [id number] Procedure: US - OB First Trimester CPT Code: FULL RESULT: EXAM: FIRST TRIMESTER OBSTETRIC ULTRASOUND (Less than 11 weeks) EXAM DATE: 12/08/2018 11:48 AM. CLINICAL HISTORY: HX OF ECTOPIC . LMP: 10/24/2018. COMPARISONS: 11/26/2018 TECHNIQUE: Transabdominal and transvaginal ultrasound examination with static image documentation. CLINICAL DATES: EGA 6 weeks 3 days with GIANCARLO 11/07/2018 based on LMP. ASSESSMENT: Gestational Sac: Single intrauterine. Mean gestational sac diameter: 8.1 mm = less than 5 weeks. Embryo: Not seen. Cardiac activity: Not seen. Yolk sac: 2.5 mm. Amniotic fluid: Not accurately assessed at this gestational age. Early placenta: Not visible at this gestational age. Other: No perigestational fluid collection demonstrated. MATERNAL STRUCTURES: Uterus: Anteverted. Unremarkable. Cervix: Closed. Right Ovary/Adnexa: The ovary measures 4.1 x 2.3 x 3.4 cm, volume 16.7 cc. Unremarkable. 2.2 x 1.1 x 1.7 cm cyst Left Ovary/Adnexa: The ovary measures 2.9 x 1.5 x 1.8 cm, volume 4 cc. Unremarkable. Free Fluid: None. Other: None. IMPRESSION: 1. Single intrauterine at EGA less than 5 weeks. 2. Suggest follow-up ultrasound in 10-14 days to assess viability. RADIA
== END 2018-12-08 11:13 | disposition home or self-care (01) ==
LOC: DI 11:12
PROVIDERS: ATTEND Obstetrics & Gynecology
DX: O09.11 Supervision of pregnancy with history of ectopic pregnancy, first trimester (principal); Z3A.01 Less than 8 weeks gestation of pregnancy
CPT/HCPCS: 76801; 76817

== ENCOUNTER 2018-12-18 14:35 | Outpatient (CLI) | payer MEDICAID ==
--- NOTE | 2018-12-19 10:20 | Ultrasound Report ---
Reason: ENCNTR FOR SUPRVSN OF NORMAL PREG, UNSP, FIRST TRI Procedure Date: 12/18/2018 Accession Number: [id number] / [id number] Procedure: US - OB First Trimester CPT Code: FULL RESULT: EXAM: FIRST TRIMESTER OBSTETRIC ULTRASOUND (Less than 11 weeks) EXAM DATE: 12/18/2018 03:41 PM. CLINICAL HISTORY: ENCOUNTER FOR SUPERVISION OF NORMAL , UNSPECIFIED, FIRST TRIMESTER. LMP: Unknown. COMPARISONS: OB FIRST TRIMESTER 12/08/2018 11:48 AM. TECHNIQUE: Transabdominal and transvaginal ultrasound examination with static image documentation. CLINICAL DATES: EGA 7 weeks 6 days with GIANCARLO 07/31/2019 based on LMP. ASSESSMENT: Gestational Sac: Single intrauterine. Mean gestational sac diameter: 12.3 mm = 5 weeks 2 days. Embryo: CRL (crown-rump length) 6.0 mm = 6 weeks 3 days. Cardiac activity: 111 beats per minute. Yolk sac: 5.4 mm. Amniotic fluid: Not accurately assessed at this gestational age. Early placenta: Not visible at this gestational age. Other: No perigestational fluid collection demonstrated. MATERNAL STRUCTURES: Uterus: Anteverted/Retroverted. Unremarkable. Cervix: Closed. Right Ovary/Adnexa: The ovary measures 4.5 x 2.8 x 2.7 cm, volume 17.8 cc. Unremarkable. Left Ovary/Adnexa: The ovary measures 2.8 x 1.3 x 1.8 cm, volume 3.4 cc. Unremarkable. Free Fluid: None. Other: None. IMPRESSION: 1. Single viable intrauterine at EGA 6 weeks 3 days with GIANCARLO 08/10/2019 based on crown-rump length, which is approximately 1 week less and clinical dates. 2. Assigned dating is GIANCARLO 08/10/2019 based on current ultrasound. RADIA
== END 2018-12-18 14:36 | disposition home or self-care (01) ==
LOC: DI 14:35
PROVIDERS: ATTEND Midwife
DX: Z34.91 Encounter for supervision of normal pregnancy, unspecified, first trimester (principal)
CPT/HCPCS: 76801; 76817

== ENCOUNTER 2019-01-19 16:59 | Outpatient (CLI) | payer MEDICAID ==
--- NOTE | 2019-01-19 18:19 | Ultrasound Report ---
Reason: F/U OB SCAN FOR VIABILITY/BLEEDING VAGINALLY Procedure Date: 01/19/2019 Accession Number: [id number] / [id number] Procedure: US - OB First Trimester CPT Code: FULL RESULT: EXAM: FIRST TRIMESTER OBSTETRIC ULTRASOUND (Less than 11 weeks) EXAM DATE: 01/19/2019 05:07 PM. CLINICAL HISTORY: F/U OB SCAN FOR VIABILITY. BLEEDING VAGINALLY. LMP: 10/24/2018. COMPARISONS: OB FIRST TRIMESTER 12/18/2018 2:52 PM. TECHNIQUE: Transabdominal and transvaginal ultrasound examination with static image documentation. CLINICAL DATES: EGA 12 weeks 3 days with GIANCARLO 07/31/2019 based on LMP. EGA 11 weeks and 0 days with GIANCARLO 08/10/2019 based on initial ultrasound 12/18/2018. ASSESSMENT: Gestational Sac: Single intrauterine. Mean gestational sac diameter: 22.8 mm = 7 weeks 2 days. Embryo: CRL (crown-rump length) 11.6 mm = 7 weeks 2 days. Cardiac activity: None identified. Yolk sac: None identified. Amniotic fluid: Not accurately assessed at this gestational age. Early placenta: Not visible at this gestational age. Other: Anterior perigestational fluid collection noted 1.5 x 0.6 x 1.2 cm. MATERNAL STRUCTURES: Uterus: Anteverted. Unremarkable. Cervix: Closed. Right Ovary/Adnexa: The ovary measures 3.2 x 2.1 x 2.6 cm, volume 9.8 cc. Unremarkable, noting 1.8 x 1.3 x 1.6 and a meter corpus luteum. Left Ovary/Adnexa: The ovary is obscured by bowel gas. Free Fluid: None. Other: None. IMPRESSION: 1. demise, noting single intrauterine at EGA 7 weeks 2 days with GIANCARLO 09/05/2019 based on crown-rump length, which is discordant with clinical dates, with no visible heartbeat. 2. Small anterior perigestational hemorrhage noted. RADIA The critical result notification system was initiated by Dr. Maurizio Pete at 06:18 PM on 01/19/2019. ADDENDUM: 01/19/19 18:22 The above critical result findings were discussed with Nadiya Iglesias by Dr. Maurizio Pete at 06:22 PM on 01/19/2019.
== END 2019-01-19 17:00 | disposition home or self-care (01) ==
LOC: DI 16:59
PROVIDERS: ATTEND Midwife
DX: O02.1 Missed abortion (principal); Z3A.01 Less than 8 weeks gestation of pregnancy
CPT/HCPCS: 76801

== ENCOUNTER 2021-02-21 18:14 | Emergency (ER) | payer MEDICAID ==
[2021-02-21 18:35] LABS: BILIRUBIN,URINE NEGATIVE (NEGATIVE); CLARITY,URINE CLEAR (CLEAR); GLUCOSE, URINE (UA) NEGATIVE (NEGATIVE); HCG UR QUAL POSITIVE; KETONES,URINE (UA) TRACE mg/dL (NEGATIVE); LEUKOCYTE ESTERASE, URINE NEGATIVE (NEGATIVE); NITRITE,URINE NEGATIVE (NEGATIVE); OCCULT BLOOD,URINE TRACE-LYSE (NEGATIVE); PROTEIN,URINE NEGATIVE (NEGATIVE); UROBILINOGEN,URINE 0.2 (NORMAL) E.U./dL (NORMAL)
[2021-02-21 18:47] VITALS: BP 132/83
--- NOTE | 2021-02-21 18:54 | ED Physician Documentation ---
PD HPI ABD PAIN - Stated complaint Stated Complaint: CRAMPING/OB - Chief complaint Chief Complaint: Abd Pain - History obtained from History obtained from: Patient - Additional information Additional information: G5, now G6, P1 with history of ectopic, miscarriage, and 2 abortions with LMP in early December, she is not sure of the exact date. She presents with about a weeks worth of left lower quadrant cramping without bleeding or fluid loss. She has had nausea with this but declines nausea medications. 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: No Does the pt have substance abuse?: No - Immunizations Immunizations are current?: Yes Immunizations: TDAP >10years/unknown - POLST Patient has POLST: No PD ED PE NORMAL - Vitals Vital signs reviewed: Yes - General General: Alert and oriented X 3, No acute distress - Abdomen Abdomen: Normal bowel sounds, Soft, Non tender - Female Female : Other (Using bedside ultrasound a single live intrauterine was identified without free fluid) - Derm Derm: Normal color, Warm and dry - Extremities Extremities: No edema, No calf tenderness / cord - Neuro Neuro: Alert and oriented X 3, Normal speech Results - Vitals Vitals: Vital Signs - 24 hr 02/21/21 02/21/21 18:17 18:46 Temperature 36.8 C 37 C Heart Rate 100 100 Respiratory 16 16 Rate Blood Pressure 135/74 H 132/83 H O2 Saturation 100 100 Oxygen O2 Source Room air - Labs Labs: Laboratory Tests 02/21/21 18:30 Urine Color DARK YELLOW Urine Clarity CLEAR Urine pH 7.0 Ur Specific [place] 1.025 Urine Protein NEGATIVE Urine Glucose (UA) NEGATIVE Urine Ketones TRACE Urine Occult Blood TRACE-LYSE Urine Nitrite NEGATIVE Urine Bilirubin NEGATIVE Urine Urobilinogen 0.2 (NORMAL) Ur Leukocyte Esterase NEGATIVE Ur Microscopic Review NOT INDICATED Urine Culture Comments NOT INDICATED Urine HCG, Qual POSITIVE Departure - Departure Disposition: Home, Self Care Clinical Impression: Intrauterine Condition: Good Record reviewed to determine appropriate education?: Yes Instructions: ED Preg Established Normal Sxs Follow-Up: Ania Adkins MD [Physician No Access] - Prescriptions: Pnv No.121/Iron/Folic Acid [ Multivitamin Tablet] 1 each PO DAILY #90 tablet Comments: Call your doctor to arrange a follow-up appointment, make the next available appointment. In the interim, return anytime if worse or if new symptoms develop.
[2021-02-21 18:56] LABS: BASOPHILS % (AUTO) 0.3 %; EOSINOPHILS # (AUTO) 0.2 10^3/uL (0.0-0.7); EOSINOPHILS % (AUTO) 2.7 %; HCT - HEMATOCRIT 35.2 % (37.0-47.0); HGB - HEMOGLOBIN 12.2 g/dL (12.0-16.0); LYMPHOCYTES # (AUTO) 3.7 10^3/uL (1.5-3.5); LYMPHOCYTES % (AUTO) 41.5 %; MEAN CORPUSCULAR HEMOGLOBIN 30.3 pg (27.0-31.0); MEAN CORPUSCULAR HGB CONC 34.7 g/dL (32.0-36.0); MEAN CORPUSCULAR VOLUME 87.3 fL (81.0-99.0); MEAN PLATELET VOLUME 8.6 fL (7.9-10.8); MONOCYTES # (AUTO) 0.5 10^3/uL (0.0-1.0); MONOCYTES % (AUTO) 5.8 %; NEUTROPHILS # (AUTO) 4.4 10^3/uL (1.5-6.6); NEUTROPHILS % (AUTO) 49.6 %; PLT - PLATELET COUNT 386 10^3/uL (130-450); RED BLOOD COUNT 4.03 10^6/uL (4.20-5.40); RED CELL DISTRIBUTION WIDTH 12.5 % (12.0-15.0); WHITE BLOOD COUNT 8.9 x10^3/uL (4.8-10.8)
[2021-02-21 19:10] LABS: ALBUMIN 3.9 g/dL (3.2-5.5); ALBUMIN/GLOBULIN RATIO 1.5 (1.0-2.2); BILIRUBIN,TOTAL 0.6 mg/dL (0.2-1.0); CREATININE 0.4 mg/dL (0.4-1.0); POTASSIUM 3.1 mmol/L (3.5-5.0); TOTAL PROTEIN 6.5 g/dL (6.7-8.2)
== END 2021-02-21 19:10 | disposition home or self-care (01) ==
LOC: ED 18:14
DX: O26.899 Other specified pregnancy related conditions, unspecified trimester (principal); R10.32 Left lower quadrant pain; O99.330 Smoking (tobacco) complicating pregnancy, unspecified trimester; F17.200 Nicotine dependence, unspecified, uncomplicated; Z3A.00 Weeks of gestation of pregnancy not specified
CPT/HCPCS: 36415; 80053; 81001; 81003; 81025; 83690; 85025; 87086; 99283; 99284

== ENCOUNTER 2021-03-25 08:00 | Outpatient (CLI) | payer MEDICAID ==
[2021-03-26 12:50] LABS: BILIRUBIN,URINE NEGATIVE (NEGATIVE); GLUCOSE, URINE (UA) 250 mg/dL (NEGATIVE); KETONES,URINE (UA) TRACE mg/dL (NEGATIVE); LEUKOCYTE ESTERASE, URINE NEGATIVE (NEGATIVE); NITRITE,URINE NEGATIVE (NEGATIVE); OCCULT BLOOD,URINE SMALL (NEGATIVE); PROTEIN,URINE NEGATIVE (NEGATIVE); UROBILINOGEN,URINE 0.2 (NORMAL) E.U./dL (NORMAL)
[2021-03-26 13:01] LABS: MUDS CUTOFF CONCENTRATIONS CUTOFF CONC BELOW:
[2021-03-26 13:02] LABS: AMPHETAMINE SCREEN,URINE POSITIVE (NEGATIVE); BARBITURATE SCREEN,UR NEGATIVE (NEGATIVE); BENZODIAZEPINES SCREEN, URINE NEGATIVE (NEGATIVE); COCAINE SCREEN URINE NEGATIVE (NEGATIVE); METHADONE SCREEN, URINE NEGATIVE (NEGATIVE); METHAMPHETAMINES SCREEN, URINE POSITIVE (NEGATIVE); OPIATE SCREEN, URINE POSITIVE (NEGATIVE); OXYCODONE SCREEN, URINE NEGATIVE (NEGATIVE); THC CANNABINOID SCREEN, URINE NEGATIVE (NEGATIVE); TRICYCLIC ANTIDEPRESSANT,URINE NEGATIVE (NEGATIVE)
[2021-03-26 13:03] LABS: PROPOXYPHENE SCREEN, URINE NEGATIVE (NEGATIVE)
[2021-03-26 13:13] LABS: AMORPHOUS SEDIMENT,UR Few /LPF; BACTERIA,URINE Few /HPF (None Seen); CLARITY,URINE CLOUDY (CLEAR); RBC,URINE 0-5 /HPF (0-5); SQUAMOUS EPITHELIAL CELL,UR MOD Squamous (<= Few); WBC,URINE 0-3 /HPF (0-5)
== END 2021-03-25 23:59 | disposition home or self-care (01) ==
LOC: LAB.WC 08:00
PROVIDERS: ATTEND Nurse Practitioner Obstetrics & Gynecology
DX: Z32.01 Encounter for pregnancy test, result positive (principal)
CPT/HCPCS: 80306; 80324; 80361; 80365; 81001; 81599; 87086

== ENCOUNTER 2021-04-16 08:00 | Outpatient (CLI) | payer MEDICAID ==
[2021-04-16 22:53] LABS: CHLAMYDIA TRACHOMATIS DNA NEGATIVE (NEGATIVE); NEISSERIA GONORRHOEAE DNA NEGATIVE (NEGATIVE); TRICHOMONAS VAGINALIS DNA NEGATIVE (NEGATIVE)
== END 2021-04-16 23:59 | disposition home or self-care (01) ==
LOC: LAB.WC 08:00
PROVIDERS: ATTEND Obstetrics & Gynecology
DX: Z34.90 Encounter for supervision of normal pregnancy, unspecified, unspecified trimester (principal)
CPT/HCPCS: 87491; 87591; 87661

== ENCOUNTER 2021-07-02 15:13 | Outpatient (CLI) | payer MEDICAID ==
[2021-07-02 15:38] LABS: BASOPHILS % (AUTO) 0.3 %; EOSINOPHILS # (AUTO) 0.2 10^3/uL (0.0-0.7); EOSINOPHILS % (AUTO) 1.8 %; HCT - HEMATOCRIT 33.5 % (37.0-47.0); HGB - HEMOGLOBIN 11.6 g/dL (12.0-16.0); LYMPHOCYTES # (AUTO) 3.6 10^3/uL (1.5-3.5); LYMPHOCYTES % (AUTO) 31.5 %; MEAN CORPUSCULAR HEMOGLOBIN 30.9 pg (27.0-31.0); MEAN CORPUSCULAR HGB CONC 34.6 g/dL (32.0-36.0); MEAN CORPUSCULAR VOLUME 89.3 fL (81.0-99.0); MEAN PLATELET VOLUME 8.6 fL (7.9-10.8); MONOCYTES # (AUTO) 0.8 10^3/uL (0.0-1.0); MONOCYTES % (AUTO) 6.6 %; NEUTROPHILS # (AUTO) 6.9 10^3/uL (1.5-6.6); NEUTROPHILS % (AUTO) 59.4 %; PLT - PLATELET COUNT 431 10^3/uL (130-450); RED BLOOD COUNT 3.75 10^6/uL (4.20-5.40); RED CELL DISTRIBUTION WIDTH 12.9 % (12.0-15.0); WHITE BLOOD COUNT 11.6 x10^3/uL (4.8-10.8)
[2021-07-03 11:56] LABS: HIV AG/AB 4TH GEN NON-REACTIVE (NON-REACTIVE)
--- NOTE | 2021-07-03 20:09 | Ultrasound Report ---
PROCEDURE: OB Detailed Eval INDICATIONS: SUPERVISION OF OUTSIDE/PRIOR DATING DATA: Last menstrual period (LMP): Unknown. First dating scan (date and location): 07/02/2021. Estimated date of delivery (GIANCARLO) from first dating scan: 09/26/2021. The below data below was generated using the ultrasound GIANCARLO of 09/26/2021 TECHNIQUE: Real-time scanning was performed of the fetus, with image documentation and biometric measurements. Endovaginal scanning: Not performed. COMPARISON: None. FINDINGS: General: A single living intrauterine gestation is present. Presentation: Vertex Placenta: Placental position is posterior, without previa. Amniotic fluid index: 11.7 cm, normal for gestational age. Largest single vertical fluid pocket: 3.4 cm. heart rate: 147 beats per minute. Maternal cervical canal: 3.6 cm long; normal length is 2.5 cm or more. biometrics: Biparietal diameter: 6.77 cm, 27 weeks 2 days Head circumference: 25.76 cm, 28 weeks 0 days Abdominal circumference: 23.1 cm, 27 weeks 3 days Femur length: 5.18 cm, 27 weeks 5 days Estimated gestational age from initial scan: not applicable. Composite gestational age from present scan: 27 weeks 5 days Estimated weight and percentile: 1091.3 g Measurement variability in biometric dating: +/- 10 days from 12-20 weeks gestation, +/- 2 weeks from 20-30 weeks gestation, +/- 3 weeks at 30 weeks gestation or later. Anatomic survey: Neuro: Ventricles are normal at less than 10 mm. Cisterna magna is normal at 3-11 mm. Cerebellum i s normal in size and morphology. Nuchal skin fold: Normal at less than 6 mm between 14 and 20 weeks gestational age. Face: Nose and lips, facial profile are normal. Spine: No evidence for spina bifida. Heart: 4-chambered heart is present, with normal ventricular outflow tracts. Diaphragm: Diaphragm is intact. Stomach: Left-sided stomach is present. Kidneys: No hydronephrosis. Normal is less than 5 mm in 2nd trimester, less than 7 mm in 3rd trimester. Cord: 3 vessel cord has orthotopic insertion. Bladder: Normal in size. Extremities: All 4 extremities are visualized. IMPRESSION: 1.Single live intrauterine with estimated gestational age of 27 weeks 5 days, resulting in an ultrasound GIANCARLO of 09/26/2021. 2. anatomic survey within normal limits. Reviewed by: Trevin Dejesus MD on 07/03/2021 8:08 PM PST Approved by: Trevin Dejesus MD on 07/03/2021 8:08 PM PST Station ID: [id number]
[2021-07-04 09:31] LABS: HEPATITIS B SURFACE ANTIGEN NON-REACTIVE (NON-REACTIVE); HEPATITIS C ANTIBODY NON-REACTIVE (NON-REACTIVE)
== END 2021-07-02 15:14 | disposition home or self-care (01) ==
LOC: DI 15:13
PROVIDERS: ATTEND Obstetrics & Gynecology
DX: Z32.01 Encounter for pregnancy test, result positive (principal); Z36.89 Encounter for other specified antenatal screening
CPT/HCPCS: 36415; 85025; 86592; 86762; 86787; 86803; 86850; 86900; 86901; 87340; 87389

== ENCOUNTER 2021-07-27 16:23 | Outpatient (CLI) | payer MEDICAID ==
[2021-07-27 16:55] LABS: HCT - HEMATOCRIT 32.6 % (37.0-47.0); MEAN CORPUSCULAR HEMOGLOBIN 29.6 pg (27.0-31.0); MEAN CORPUSCULAR HGB CONC 33.7 g/dL (32.0-36.0); MEAN CORPUSCULAR VOLUME 87.9 fL (81.0-99.0); MEAN PLATELET VOLUME 8.6 fL (7.9-10.8); RED BLOOD COUNT 3.71 10^6/uL (4.20-5.40); RED CELL DISTRIBUTION WIDTH 12.7 % (12.0-15.0); WHITE BLOOD COUNT 9.6 x10^3/uL (4.8-10.8)
[2021-07-27 17:08] LABS: CREATININE,URINE 198.5 mg/dL; PROTEIN/CREATININE RATIO,URINE 0.1 (<=0.2)
[2021-07-27 22:16] LABS: ALBUMIN 2.8 g/dL (3.2-5.5); ALBUMIN/GLOBULIN RATIO 0.8 (1.0-2.2); BILIRUBIN,TOTAL 0.6 mg/dL (0.2-1.0); CALCIUM 8.4 mg/dL (8.5-10.3); CREATININE 0.5 mg/dL (0.4-1.0); POTASSIUM 3.5 mmol/L (3.5-5.0); TOTAL PROTEIN 6.2 g/dL (6.7-8.2)
== END 2021-07-27 16:24 | disposition home or self-care (01) ==
LOC: LAB 16:23
PROVIDERS: ATTEND Obstetrics & Gynecology
DX: O13.2 Gestational [pregnancy-induced] hypertension without significant proteinuria, second trimester (principal)
CPT/HCPCS: 36415; 80053; 82570; 84156; 85027

== ENCOUNTER 2021-08-24 17:04 | Outpatient (CLI) | payer MEDICAID | END 2021-08-24 17:05 | disposition home or self-care (01) | LOC: LAB 17:04 | PROVIDERS: ATTEND Obstetrics & Gynecology | DX: O13.2 Gestational [pregnancy-induced] hypertension without significant proteinuria, second trimester (principal); Z36.85 Encounter for antenatal screening for Streptococcus B ==

== ENCOUNTER 2021-08-24 17:10 | Outpatient (CLI) | payer MEDICAID ==
[2021-08-24 17:28] LABS: BASOPHILS % (AUTO) 0.3 %; EOSINOPHILS # (AUTO) 0.1 10^3/uL (0.0-0.7); HCT - HEMATOCRIT 32.9 % (37.0-47.0); HGB - HEMOGLOBIN 11.1 g/dL (12.0-16.0); LYMPHOCYTES # (AUTO) 3.1 10^3/uL (1.5-3.5); LYMPHOCYTES % (AUTO) 31.9 %; MEAN CORPUSCULAR HEMOGLOBIN 29.3 pg (27.0-31.0); MEAN CORPUSCULAR HGB CONC 33.7 g/dL (32.0-36.0); MEAN CORPUSCULAR VOLUME 86.8 fL (81.0-99.0); MONOCYTES # (AUTO) 0.7 10^3/uL (0.0-1.0); MONOCYTES % (AUTO) 7.5 %; NEUTROPHILS # (AUTO) 5.7 10^3/uL (1.5-6.6); NEUTROPHILS % (AUTO) 58.9 %; PLT - PLATELET COUNT 360 10^3/uL (130-450); RED BLOOD COUNT 3.79 10^6/uL (4.20-5.40); RED CELL DISTRIBUTION WIDTH 12.8 % (12.0-15.0); WHITE BLOOD COUNT 9.7 x10^3/uL (4.8-10.8)
[2021-08-24 17:38] LABS: ALBUMIN 2.6 g/dL (3.2-5.5); ALBUMIN/GLOBULIN RATIO 0.8 (1.0-2.2); BILIRUBIN,TOTAL 0.5 mg/dL (0.2-1.0); CALCIUM 8.7 mg/dL (8.5-10.3); CREATININE 0.6 mg/dL (0.4-1.0); POTASSIUM 4.2 mmol/L (3.5-5.0)
[2021-08-24 17:42] LABS: CREATININE,URINE 187.6 mg/dL; PROTEIN/CREATININE RATIO,URINE 0.1 (<=0.2)
== END 2021-08-24 23:59 | disposition home or self-care (01) ==
LOC: LAB 17:10
PROVIDERS: ATTEND Obstetrics & Gynecology
DX: O13.2 Gestational [pregnancy-induced] hypertension without significant proteinuria, second trimester (principal); Z36.85 Encounter for antenatal screening for Streptococcus B
CPT/HCPCS: 36415; 80053; 82570; 84156; 85025; 87491; 87591; 87661; 87797

== ENCOUNTER 2021-08-29 14:35 | Outpatient (CLI) | payer MEDICAID ==
--- NOTE | 2021-08-29 17:52 | Ultrasound Report ---
PROCEDURE: OB F/U or Repeat INDICATIONS: GESTATIONAL HYPERTENSION OUTSIDE/PRIOR DATING DATA: Last menstrual period (LMP): Unknown. LMP-based estimated date of delivery (GIANCARLO): Not applicable. First dating scan (date and location): 07/02/2021. Estimated date of delivery (GIANCARLO) from first dating scan: 09/26/2021. The below data below was generated using the ultrasound GIANCARLO of 09/26/2021 TECHNIQUE: Real-time scanning was performed of the fetus, with image documentation and biometric measurements. COMPARISON: 07/02/2021 FINDINGS: General: A single live intrauterine gestation is present. Presentation: Vertex Placenta: Placental position is posterior, without previa. Amniotic fluid index: 9.9 cm, within normal limits for gestational age. Largest pocket of fluid: 6.7 cm heart rate: 135 beats per minute. Maternal cervical canal: 2.5 cm long; normal length is 2.5 cm or more. biometrics: Biparietal diameter: 8.8 cm equals 35 weeks 3 days Head circumference: 32.3 cm equals 36 weeks 3 days Abdominal circumference: 31.6 cm equals 35 weeks 4 days Femur length: 6.7 cm equals 34 weeks 3 days Estimated gestational age from initial scan: 36 weeks 0 days Composite gestational age from present scan: 35 weeks 3 days Estimated weight and percentile: 2644 g, 32nd percentile Measurement variability in biometric dating: +/- 10 days from 12-20 weeks gestation, +/- 2 weeks from 20-30 weeks gestation, +/- 3 weeks at 30 weeks gestation or more. Other: Not applicable. The visualized anatomy is within normal limits. IMPRESSION: Normal interval growth compared to the prior ultrasound examination. Reviewed by: Roman York MD on 08/29/2021 4:50 PM [facility] Approved by: Roman York MD on 08/29/2021 4:50 PM [facility] Station ID: [id number]
== END 2021-08-29 14:36 | disposition home or self-care (01) ==
LOC: DI 14:35
PROVIDERS: ATTEND Obstetrics & Gynecology
DX: O13.3 Gestational [pregnancy-induced] hypertension without significant proteinuria, third trimester (principal); Z3A.35 35 weeks gestation of pregnancy

== ENCOUNTER 2021-11-19 07:00 | Outpatient (CLI) | payer MEDICAID ==
[2021-11-19 18:32] LABS: BASOPHILS # (AUTO) 0.1 10^3/uL (0.0-0.1); BASOPHILS % (AUTO) 0.7 %; EOSINOPHILS # (AUTO) 0.2 10^3/uL (0.0-0.7); HCT - HEMATOCRIT 41.7 % (37.0-47.0); LYMPHOCYTES # (AUTO) 3.6 10^3/uL (1.5-3.5); LYMPHOCYTES % (AUTO) 40.1 %; MEAN CORPUSCULAR HEMOGLOBIN 28.9 pg (27.0-31.0); MEAN CORPUSCULAR HGB CONC 33.6 g/dL (32.0-36.0); MEAN CORPUSCULAR VOLUME 86.2 fL (81.0-99.0); MEAN PLATELET VOLUME 9.1 fL (7.9-10.8); MONOCYTES # (AUTO) 0.7 10^3/uL (0.0-1.0); MONOCYTES % (AUTO) 8.1 %; NEUTROPHILS # (AUTO) 4.4 10^3/uL (1.5-6.6); NEUTROPHILS % (AUTO) 48.9 %; PLT - PLATELET COUNT 413 10^3/uL (130-450); RED BLOOD COUNT 4.84 10^6/uL (4.20-5.40); RED CELL DISTRIBUTION WIDTH 14.2 % (12.0-15.0); WHITE BLOOD COUNT 9.1 x10^3/uL (4.8-10.8)
[2021-11-19 19:11] LABS: ALBUMIN 3.9 g/dL (3.2-5.5); ALBUMIN/GLOBULIN RATIO 1.3 (1.0-2.2); BILIRUBIN,TOTAL 0.3 mg/dL (0.2-1.0); CALCIUM 9.3 mg/dL (8.5-10.3); CREATININE 0.8 mg/dL (0.4-1.0); POTASSIUM 4.2 mmol/L (3.5-5.0); TOTAL PROTEIN 6.8 g/dL (6.7-8.2)
== END 2021-11-19 23:59 | disposition home or self-care (01) ==
LOC: LAB.R 07:00
PROVIDERS: ATTEND Registered Nurse
DX: R79.9 Abnormal finding of blood chemistry, unspecified (principal); R94.6 Abnormal results of thyroid function studies; Z13.228 Encounter for screening for other metabolic disorders
CPT/HCPCS: 80050

== ENCOUNTER 2022-07-16 18:23 | Emergency (ER) | payer OTHER, MEDICAID | END 2022-07-16 18:30 | disposition left against medical advice (07) | LOC: ED 18:23 | DX: Z53.21 Procedure and treatment not carried out due to patient leaving prior to being seen by health care provider (principal) ==

== ENCOUNTER 2022-12-07 16:56 | Outpatient (CLI) | payer MEDICAID ==
[2022-12-07] MEDS ORDERED: NIFEdipine 10 MG CAPSULE PO ONE ×3 (17:40→18:11)
[2022-12-07] MEDS ORDERED: NIFEdipine 10 MG CAPSULE PO PRN (17:40)
[2022-12-07] MEDS ORDERED: MAGNESIUM SULFATE IV ONE (17:44)
[2022-12-07] MEDS ORDERED: LACTATED RINGERS 1,000 ML ONE (17:44)
--- NOTE | 2022-12-07 18:04 | HISTORY & PHYSICAL EXAMINATION ---
Admit History - Visit Reason Visit Reason: Other (hypertension) - : 3 Parity: 2 Care: positive: [facility] Risk/History: positive: No care, Other (drug use. Patient uses meth and fentanyl. Reports last meth use today) Complications This : positive: Maternal drug use (meth and fentanyl) Smoking Status: Current every day smoker - Mother's Labs Mother's Blood Type: positive: Unknown Mother's RH: positive: Unknown Rubella Status: positive: Unknown - Other Maternal History Other Maternal History: positive movement. Denies vaginal bleeding, leakage of fluid and contractions. Patient states she had an ultrasound at [facility] at 9+5 weeks. She has had no care. Meds/Allgy - Home Medications Home Medications: Ambulatory Orders Medication Instructions Recorded Confirmed Valacyclovir HCl [Valacyclovir] 1,000 mg PO DAILY 05/22/17 11/23/17 Omeprazole 20 mg PO DAILY 06/07/17 11/23/17 Gabapentin 300 mg PO 09/04/18 Pnv No.121/Iron/Folic Acid 1 each PO DAILY #90 tablet 02/21/21 [ Multivitamin Tablet] - Allergies Allergies/Adverse Reactions: Allergies Allergy/AdvReac Type Severity Reaction Status Date / Time No Known Drug Allergies Allergy Verified 02/21/21 18:17 Review of Systems - Respiratory Respiratory: denies: Cough - Gastrointestinal Gastrointestinal: denies: Abdominal pain - Genitourinary Genitourinary: reports: Other (herpes outbreak) - All Other Systems All Other Systems: reports: Reviewed and negative (patient is complaining of lower extremity edema that started a few weeks ago.) Physical - Abdominal Exam Vital Signs: Temp Pulse Resp BP Pulse Ox O2 Flow Rate 98.1 F 120 H 15 165/110 H 12/07/22 17:42 12/07/22 17:42 12/07/22 17:42 12/07/22 17:42 Contraction Frequency (min/apart): none Uterine Resting Tone: positive: Soft - Monitoring Strip Review: positive: Category I - Vaginal Exam Membranes: positive: Membranes intact (Gen: NAD Pulm: CTA bilaterally Cardiac: RRR Abdomen: gravid, soft, nontender Ext: 2+ lower extremity edema DTRs 2+ no clonus) Plan for Labor - Plan For Labor Plan for Labor: 1. severe range blood pressures 10 mg IR PO nifedipine given patient with recent meth use UDS sent pre-eclampsia labs sent 2. no care panel set 3. wellbeing: reassuring
[2022-12-07 18:15] LABS: BASOPHILS % (AUTO) 0.3 %; EOSINOPHILS # (AUTO) 0.2 10^3/uL (0.0-0.7); EOSINOPHILS % (AUTO) 1.8 %; HCT - HEMATOCRIT 30.7 % (37.0-47.0); HGB - HEMOGLOBIN 10.4 g/dL (12.0-16.0); LYMPHOCYTES % (AUTO) 29.9 %; MEAN CORPUSCULAR HGB CONC 33.9 g/dL (32.0-36.0); MEAN CORPUSCULAR VOLUME 85.5 fL (81.0-99.0); MEAN PLATELET VOLUME 9.2 fL (7.9-10.8); MONOCYTES # (AUTO) 0.8 10^3/uL (0.0-1.0); MONOCYTES % (AUTO) 7.6 %; NEUTROPHILS % (AUTO) 59.9 %; PLT - PLATELET COUNT 374 10^3/uL (130-450); RED BLOOD COUNT 3.59 10^6/uL (4.20-5.40); RED CELL DISTRIBUTION WIDTH 12.7 % (12.0-15.0)
--- NOTE | 2022-12-07 18:25 | PROVIDER PROGRESS NOTE ---
Subjective - Prog Note Date Prog Note Date: 12/07/22 Objective - Vital Signs/Intake & Output Vital Signs: Vital Signs x48h Temp Pulse Pulse Resp BP BP Pulse Ox 12/07/22 17:43 98 168/98 H 12/07/22 17:42 98.1 F 120 H 15 165/110 H 12/07/22 17:35 100 19 175/104 H 97 12/07/22 17:28 106 H 165/110 H - Lab Results Fish Bones: 12/07/22 17:50 Other Labs: Lab Results x24hrs 12/07/22 Range/Units 17:50 WBC 10.0 (4.8-10.8) x10^3/uL RBC 3.59 L (4.20-5.40) 10^6/uL Hgb 10.4 L (12.0-16.0) g/dL Hct 30.7 L (37.0-47.0) % MCV 85.5 (81.0-99.0) fL MCH 29.0 (27.0-31.0) pg MCHC 33.9 (32.0-36.0) g/dL RDW 12.7 (12.0-15.0) % Plt Count 374 (130-450) 10^3/uL MPV 9.2 (7.9-10.8) fL Neut # (Auto) 6.0 (1.5-6.6) 10^3/uL Lymph # (Auto) 3.0 (1.5-3.5) 10^3/uL [place] # (Auto) 0.8 (0.0-1.0) 10^3/uL Eos # (Auto) 0.2 (0.0-0.7) 10^3/uL Baso # (Auto) 0.0 (0.0-0.1) 10^3/uL Absolute Nucleated RBC 0.00 x10^3/uL Nucleated RBC % 0.0 /100WBC Assessment/Plan - Problem List (1) complicated by maternal drug use, antepartum Impression: Patient states "I just want fucking out of here." I discussed concern with severe range blood pressures and recent methamphetamine use and risk of pre-eclampsia. I offered anatomy scan for patient. I discussed risk of stroke, risk of placental abruption and risk of maternal and/or . Patient states she understands risks. Patient counseled that she can leave AMA at any time. I explained that I cannot safely discharge patient because of blood pressures.
[2022-12-07 18:31] LABS: ALBUMIN 2.5 g/dL (3.2-5.5); ALBUMIN/GLOBULIN RATIO 0.7 (1.0-2.2); BILIRUBIN,TOTAL 0.4 mg/dL (0.2-1.0); CALCIUM 8.5 mg/dL (8.5-10.3); CREATININE 0.4 mg/dL (0.4-1.0); POTASSIUM 3.3 mmol/L (3.5-5.0); TOTAL PROTEIN 6.3 g/dL (6.7-8.2)
[2022-12-07 18:50] LABS: MUDS CUTOFF CONCENTRATIONS CUTOFF CONC BELOW:
[2022-12-07 18:52] LABS: BILIRUBIN,URINE NEGATIVE (NEGATIVE); GLUCOSE, URINE (UA) NEGATIVE (NEGATIVE); KETONES,URINE (UA) NEGATIVE (NEGATIVE); LEUKOCYTE ESTERASE, URINE MODERATE (NEGATIVE); NITRITE,URINE NEGATIVE (NEGATIVE); OCCULT BLOOD,URINE TRACE-INTA (NEGATIVE); PH,URINE 7.5 PH (5.0-7.5); PROTEIN,URINE NEGATIVE (NEGATIVE); UROBILINOGEN,URINE 0.2 (NORMAL) E.U./dL (NORMAL)
[2022-12-07 18:56] LABS: CLARITY,URINE HAZY (CLEAR)
[2022-12-07 19:06] LABS: AMORPHOUS SEDIMENT,UR Few /LPF; BACTERIA,URINE Few /HPF (None Seen); COCAINE SCREEN URINE NEGATIVE (NEGATIVE); SQUAMOUS EPITHELIAL CELL,UR FEW Squamous (<= Few); THC CANNABINOID SCREEN, URINE NEGATIVE (NEGATIVE); TRICHOMONAS,URINE PRESENT (None Seen)
[2022-12-07 19:07] LABS: AMPHETAMINE SCREEN,URINE POSITIVE (NEGATIVE); BARBITURATE SCREEN,UR NEGATIVE (NEGATIVE); BENZODIAZEPINES SCREEN, URINE NEGATIVE (NEGATIVE); METHADONE SCREEN, URINE NEGATIVE (NEGATIVE); METHAMPHETAMINES SCREEN, URINE POSITIVE (NEGATIVE); OPIATE SCREEN, URINE NEGATIVE (NEGATIVE); OXYCODONE SCREEN, URINE NEGATIVE (NEGATIVE); PROPOXYPHENE SCREEN, URINE NEGATIVE (NEGATIVE); TRICYCLIC ANTIDEPRESSANT,URINE NEGATIVE (NEGATIVE)
--- NOTE | 2022-12-07 19:23 | PROCEDURE REPORT ---
- HPI Diagnosis/Indication for NST: Other (recent meth use with elevated BPS) Vital Signs Heart Rate 106 H 12/07/22 17:28 Blood Pressure 165/110 H 12/07/22 17:28 Temperature 98.1 F 12/07/22 17:42 Heart Rate 103 H 12/07/22 17:55 Respiratory Rate 15 12/07/22 17:42 Blood Pressure 165/102 H 12/07/22 17:55 O2 Saturation 97 12/07/22 17:35 If not protocol: Oxygen Flow, liters/minute - NST Procedure ~31 weeks gestational age NST reactive - Results and Plan Findings/Impression: 1. reactive NST patient requested IV removed. I counseled on drug use in and asked if we could provide resources, patient declined. I discussed risks of meth and fentanyl use in including risk of and maternal . 2. anatomy ultrasound -possibly large for gestational age, however dating unsure -there is a non-specific area near placenta which will need follow up ultrasound
[2022-12-07 19:26] VITALS: BP 154/98
[2022-12-07 19:37] LABS: PROTEIN/CREATININE RATIO,URINE 0.2 (<=0.2)
[2022-12-07 21:18] LABS: CHLAMYDIA TRACHOMATIS DNA NEGATIVE (NEGATIVE)
[2022-12-07 21:19] LABS: NEISSERIA GONORRHOEAE DNA NEGATIVE (NEGATIVE); TRICHOMONAS VAGINALIS DNA POSITIVE (NEGATIVE)
--- NOTE | 2022-12-08 10:23 | Ultrasound Report ---
PROCEDURE: OB 14+ Weeks INDICATIONS: no care, anatomy, drug use OUTSIDE/PRIOR DATING DATA: Last menstrual period (LMP): Not available. LMP-based estimated date of delivery (GIANCARLO): Not available. First dating scan (date and location): 07/15/2022; [facility]. Estimated date of delivery (GIANCARLO) from first dating scan: 02/12/2023. TECHNIQUE: Real-time scanning was performed of the fetus, with image documentation and biometric measurements. COMPARISON: Not available FINDINGS: General: A single living intrauterine gestation is present. Presentation: Breech Placenta: Placental position is posterior, without previa. Amniotic fluid index: 17.8 cm; largest pocket 5.7 cm. heart rate: 141 beats per minute. Maternal cervical canal: Closed measuring 4.8 cm long; normal length is 2.5 cm or more. biometrics: Biparietal diameter: 30 weeks 3 days Head circumference: 32 weeks 1 day Abdominal circumference: 31 weeks 0 day Femur length: 30 weeks 5 days Estimated gestational age from initial scan: 30 weeks 3 day. Composite gestational age from present scan: 30 weeks 5 days Estimated weight and percentile: 1675.3 g; 56.7% Measurement variability for biometric dating: +/- 10 days from 12-20 weeks gestation, +/- 2 weeks fro m 20-30 weeks gestation, +/- 3 weeks for 30 weeks gestation or later. Anatomic survey: Suboptimal. Neuro: Not well seen. Nuchal skin fold: n.a. Face: Nose and lips, facial profile are normal. Spine: Limited. Heart: Not well seen. Diaphragm: Diaphragm is intact. Stomach: Left-sided stomach is present. Kidneys: No hydronephrosis. Normal is less than 5 mm in 2nd trimester, less than 7 mm in 3rd trimester. Cord: 3-vessel cord has orthotopic insertion. Bladder: Normal in size. Extremities: All 4 extremities identified. There is a 4.9 x 3.8 x 3.5 cm cystic structure in the left of the placenta adjacent to the umbilical cord insertion. IMPRESSION: 1. A single living IUP redemonstrated. 2. There is appropriate interval growth. 3. There is a 4.9 x 3.8 x 3.5 cm cystic structure in the left of the placenta adjacent to the umbilic al cord insertion. It is probably an umbilical cyst. Recommend ultrasound follow-up. Reviewed by: Patrice Wagner MD on 12/08/2022 10:22 AM PDT Approved by: Patrice Wagner MD on 12/08/2022 10:22 AM PDT Station ID: [id number]
[2022-12-09 02:07] LABS: HIV SCREEN 4TH GENERATION Non Reactive (Non Reactive)
[2022-12-09 04:09] LABS: HBsAG SCREEN Negative (Negative); HCV AB Non Reactive (Non Reactive); HEPATITIS B CORE IGM AB Negative (Negative)
[2022-12-10 16:08] LABS: TREPONEMA PALLIDUM ANTIBODIES Non Reactive (Non Reactive)
[2022-12-11 19:07] LABS: HBV IU/ML HBV DNA not detected IU/mL (.)
== END 2022-12-07 19:20 | disposition home or self-care (01) ==
LOC: WFO 16:56 → FBP 17:21 → WFO 19:20
PROVIDERS: ATTEND Obstetrics & Gynecology Obstetrics
DX: O99.323 Drug use complicating pregnancy, third trimester (principal); F15.90 Other stimulant use, unspecified, uncomplicated; F11.90 Opioid use, unspecified, uncomplicated; O16.3 Unspecified maternal hypertension, third trimester; O99.333 Smoking (tobacco) complicating pregnancy, third trimester; O34.83 Maternal care for other abnormalities of pelvic organs, third trimester; N94.89 Other specified conditions associated with female genital organs and menstrual cycle; Z3A.30 30 weeks gestation of pregnancy; O09.33 Supervision of pregnancy with insufficient antenatal care, third trimester; F17.200 Nicotine dependence, unspecified, uncomplicated; O98.313 Other infections with a predominantly sexual mode of transmission complicating pregnancy, third trimester; A60.00 Herpesviral infection of urogenital system, unspecified
CPT/HCPCS: 36415; 59025; 76805; 80053; 80074; 80306; 81001; 82570; 83615; 84156; 84550; 85025; 86762; 86780; 86900; 86901; 87086; 87340; 87389; 87491; 87517; 87591; 87661; 99214; A9270; J7120; 81003; 99215; J3475

== ENCOUNTER 2023-02-11 04:41 | Inpatient (IN) | payer MEDICAID ==
[2023-02-11] MEDS ORDERED: LACTATED RINGERS 1,000 ML ONE (05:08)
[2023-02-11] MEDS ORDERED: OXYTOCIN 10 UNIT/ML VIAL ONE (05:08)
[2023-02-11] MEDS ORDERED: OXYTOCIN/SODIUM CHLORIDE 500 ML IV ONE (05:08)
[2023-02-11] MEDS: LABETALOL 20 MG/4 ML SYRINGE IVP PRN ×3 (05:48→09:02)
[2023-02-11] MEDS ORDERED: LABETALOL 20 MG/4 ML SYRINGE IVP ONE ×2 (05:50→06:09)
[2023-02-11] MEDS ORDERED: MAGNESIUM SULFATE 4 GRAM 4 GM/50 ML BAG IV ONE (06:02)
[2023-02-11] MEDS ORDERED: SODIUM CHLORIDE FLUSH 0.9% 10 ML SYRINGE IVP PRN (06:02)
[2023-02-11] MEDS ORDERED: WITCH HAZEL/GLYCERIN 1 PAD TOP PRN (06:02)
[2023-02-11] MEDS ORDERED: HYDROcod/ACETAM 5/325 MG TABLET PO PRN (06:02)
[2023-02-11] MEDS ORDERED: ONDANSETRON ODT 4 MG TABLET TL PRN (06:02)
[2023-02-11 06:23] LABS: BASOPHILS % (AUTO) 0.3 %; EOSINOPHILS # (AUTO) 0.1 10^3/uL (0.0-0.7); EOSINOPHILS % (AUTO) 0.7 %; HCT - HEMATOCRIT 29.7 % (37.0-47.0); HGB - HEMOGLOBIN 9.5 g/dL (12.0-16.0); LYMPHOCYTES # (AUTO) 2.9 10^3/uL (1.5-3.5); LYMPHOCYTES % (AUTO) 22.3 %; MEAN CORPUSCULAR HEMOGLOBIN 24.7 pg (27.0-31.0); MEAN CORPUSCULAR VOLUME 77.3 fL (81.0-99.0); MEAN PLATELET VOLUME 10.4 fL (7.9-10.8); MONOCYTES # (AUTO) 0.7 10^3/uL (0.0-1.0); MONOCYTES % (AUTO) 5.4 %; NEUTROPHILS # (AUTO) 9.2 10^3/uL (1.5-6.6); NEUTROPHILS % (AUTO) 70.9 %; PLT - PLATELET COUNT 387 10^3/uL (130-450); RED BLOOD COUNT 3.84 10^6/uL (4.20-5.40); RED CELL DISTRIBUTION WIDTH 14.4 % (12.0-15.0); WHITE BLOOD COUNT 12.9 x10^3/uL (4.8-10.8)
--- NOTE | 2023-02-11 06:31 | DELIVERY NOTE ---
Delivery Note - Infant Delivery Method Infant Delivery Method: positive: Spontaneous vaginal delivery - Presentation Presentation: positive: Vertex - Nuchal Cord Nuchal Cord: positive: Reduced - Anesthetic Anesthetic Type: - Amniotic Fluid Description Amniotic Fluid Description: positive: Clear - Episiotomy Type Episiotomy Type: positive: None - Laceration Laceration: positive: None - Delivery Outcome Delivery Outcome: positive: Livebirth - [place] : positive: Placed in direct skin contact with mother, Suctioned, Bulb syringe, Stimulated [place] sex: positive: Female - Cord Cord: positive: 2 vessels, Other (blood filled cyst on umbilical cord near to placental insertion site) - Placenta Placenta: positive: Intact (sent to pathology) - Estimated Blood Loss Estimated Blood Loss (in cc): 350 - Post Delivery Events Post Delivery Events: positive: No post delivery events (except for severe range BP. first blood pressure of patient was taken when the patient was 190/100+ repeated and 204/117. severe hypertension protocol started with labetalol and magnesium ordered to start) - Delivery Comments (Free Text/Narrative) Delivery Comments (Free Text/Narrative): On 11 February 2023 at 0525 patient delivered a viable female infant over intact perineum. baby was LOT, R shoulder anterior, nuchal x1 reduced, shoulders and body delivered without difficulty, baby placed on maternal abdomen, cord clamped & cut x2, baby stimulated, apgars 6/8, cord segment sent per peds and cord gasses sent. Perineum inspected, no tears or lacerations. Placenta delivered at 0530, inspected, intact with umbilical cord cyst noted near to placental insertion site, 3VC. Fundus firm with IV pitocin. EBL 350. All counts correct, both mom and baby recovering well.
[2023-02-11 06:36] LABS: ALBUMIN 2.7 g/dL (3.2-5.5)
[2023-02-11 06:37] LABS: ALBUMIN/GLOBULIN RATIO 0.8 (1.0-2.2); BILIRUBIN,TOTAL 0.4 mg/dL (0.2-1.0); CALCIUM 8.4 mg/dL (8.5-10.3); CREATININE 0.6 mg/dL (0.6-1.3); POTASSIUM 4.1 mmol/L (3.5-4.5); TOTAL PROTEIN 6.1 g/dL (6.4-8.9)
--- NOTE | 2023-02-11 07:07 | HISTORY & PHYSICAL EXAMINATION ---
Admit History - : 7 Parity: 2 Premature: 0 Ectopic: 1 : 3 Care: positive: [facility] GRECIA-[place], Other Risk/History: positive: Pre-eclampsia, High risk, Other (scant care, + meth, + fentanyl) Complications This : positive: <than 3 visits, Maternal drug use, Pre-eclampsia, Chronic HTN, Other (gbs unknown) Smoking Status: Current some day smoker - Mother's Labs Mother's Blood Type: positive: A Mother's RH: positive: Positive GBS: positive: Other (unknown) Rubella Status: positive: Immune - Other Maternal History Other Maternal History: 37yo here in active labor c/b: 1. scant care - 2 units 2. meth and fantanyl use - has been trying to get into treatment, has reduced her drug use 3. chronic HTN - h/o severe preE with last baby 1 year ago, no meds, not on ASA this 4. trichomoniasis - was treated 5. HSV+ - taking valtrex 6. GBS unknown ANL: O+/RI/RPRNR/HIVneg/GCCTnegneg/GBS unknown PMH: as above PSH: denies POB: 15yo, 1yo (with sister) proven pelvis to 6#7oz no h/o GDM did require mag with last baby for severe preE PGYN: trich as above HSV Soc: + tob, + meth, + fentanyl support system is kermit her FOB currently living with kermit with stable housing: - HPI Vital Signs Temperature 98.1 F 02/11/23 06:00 Heart Rate 91 02/11/23 06:00 Respiratory Rate 16 02/11/23 06:00 Blood Pressure 190/105 H 02/11/23 06:00 Temperature 98.1 F 02/11/23 06:00 Heart Rate 91 02/11/23 06:00 Respiratory Rate 16 02/11/23 06:00 Blood Pressure 190/105 H 02/11/23 06:00 O2 Saturation If not protocol: Oxygen Flow, liters/minute - NST Procedure NST Procedure Start Time 17:31 Stop Time 18:01 Meds/Allgy - Home Medications Home Medications: Ambulatory Orders Medication Instructions Recorded Confirmed Valacyclovir HCl [Valacyclovir] 1,000 mg PO DAILY 05/22/17 11/23/17 Omeprazole 20 mg PO DAILY 06/07/17 11/23/17 Gabapentin 300 mg PO 09/04/18 Pnv No.121/Iron/Folic Acid 1 each PO DAILY #90 tablet 02/21/21 [ Multivitamin Tablet] - Allergies Allergies/Adverse Reactions: Allergies Allergy/AdvReac Type Severity Reaction Status Date / Time No Known Drug Allergies Allergy Verified 02/21/21 18:17 Physical - Abdominal Exam Vital Signs: Temp Pulse Resp BP Pulse Ox O2 Flow Rate 98.1 F 91 16 190/105 H 02/11/23 06:00 02/11/23 06:00 02/11/23 06:00 02/11/23 06:00 first BP was taken after , severe range, initiated severe preEclampsia processes Contraction Intensity: positive: Strong Uterine Resting Tone: positive: Soft - Monitoring Strip Review: positive: Category II - Presentation Presentation: positive: Vertex - Vaginal Exam Membranes: positive: Membranes ruptured Dilation (in cm): 10 Effacement (%): 100 Station: positive: 1 - Speculum Exam Speculum Exam Performed: positive: No - Other Notes Labor Progress Note/Additional Text: commenced pushing Plan for Labor - Plan For Labor I expect patient to be DC'd or transferred within 96 hours.: No Plan for Labor: proceed with pushing and delivery due to BP being checked for first time: severe preeclampsia: s/p labetalol 20, 40, and waiting for indication for 80 mag started severe preE protocol initiated due to drug use: tox screen on baby and oxy ordered for pain control chronic long time opiod user - heroin prior to and fentanyl also -- will take care and precautions with mother as well. anticipate CPS involvement.
[2023-02-11] MEDS: MAGNESIUM SULFATE IN WATER 20 GM/500 ML IV.SOLN IV SCH ×2 (07:09→15:23)
[2023-02-11] MEDS: ACETAMINOPHEN 325 MG TABLET PO PRN ×3 (08:27→21:25)
[2023-02-11] MEDS: IBUPROFEN 600 MG TABLET PO PRN ×3 (08:27→21:25)
[2023-02-11] MEDS: LACTATED RINGERS 1,000 ML IV SCH ×3 (08:31→20:51)
[2023-02-11] MEDS: NICOTINE 14 MG PATCH TOP SCH (08:34)
[2023-02-11] MEDS: SODIUM CHLORIDE FLUSH 0.9% 10 ML SYRINGE IVP SCH ×2 (09:06→18:48)
[2023-02-11] MEDS: FUROSEMIDE 20 MG TABLET PO SCH (09:11)
[2023-02-11 13:05] LABS: MUDS CUTOFF CONCENTRATIONS CUTOFF CONC BELOW:
[2023-02-11 13:19] LABS: AMPHETAMINE SCREEN,URINE POSITIVE (NEGATIVE); BARBITURATE SCREEN,UR NEGATIVE (NEGATIVE); BENZODIAZEPINES SCREEN, URINE NEGATIVE (NEGATIVE); COCAINE SCREEN URINE POSITIVE (NEGATIVE); METHADONE SCREEN, URINE NEGATIVE (NEGATIVE); METHAMPHETAMINES SCREEN, URINE POSITIVE (NEGATIVE); OPIATE SCREEN, URINE NEGATIVE (NEGATIVE); OXYCODONE SCREEN, URINE NEGATIVE (NEGATIVE); PROPOXYPHENE SCREEN, URINE NEGATIVE (NEGATIVE); THC CANNABINOID SCREEN, URINE NEGATIVE (NEGATIVE); TRICYCLIC ANTIDEPRESSANT,URINE NEGATIVE (NEGATIVE)
[2023-02-11] MEDS ORDERED: NIFEdipine 10 MG CAPSULE PO SCH (21:00)
[2023-02-11] MEDS ORDERED: NIFEdipine 10 MG CAPSULE PO ONE (21:09)
[2023-02-11] MEDS ORDERED: NIFEdipine ER 30 MG TABLET PO ONE (22:00)
[2023-02-12] MEDS ORDERED: NIFEdipine 10 MG CAPSULE PO PRN (00:17)
[2023-02-12] MEDS ORDERED: NIFEdipine 10 MG CAPSULE PO ONE (01:00)
[2023-02-12] MEDS: LABETALOL 100 MG TABLET PO SCH ×2 (01:38→10:00)
[2023-02-12] MEDS: IBUPROFEN 600 MG TABLET PO PRN ×2 (03:41→10:00)
[2023-02-12] MEDS: ACETAMINOPHEN 325 MG TABLET PO PRN ×2 (03:41→09:59)
[2023-02-12] MEDS: MAGNESIUM SULFATE IN WATER 20 GM/500 ML IV.SOLN IV SCH (03:49)
[2023-02-12] MEDS: SODIUM CHLORIDE FLUSH 0.9% 10 ML SYRINGE IVP SCH ×2 (03:55→09:35)
[2023-02-12] MEDS ORDERED: NIFEdipine 10 MG CAPSULE PO SCH (09:00)
[2023-02-12] MEDS ORDERED: LABETALOL 100 MG TABLET PO SCH (09:00)
[2023-02-12] MEDS ORDERED: NIFEdipine ER 30 MG TABLET PO SCH (09:00)
--- NOTE | 2023-02-12 09:59 | PROVIDER PROGRESS NOTE ---
Subjective - Prog Note Date Prog Note Date: 02/12/23 Prog Note Time: 09:57 - Subjective Pt reports feeling: Improved (Pt well, lochia appropriate, minor headache, no breast engorgement, + void, + luz elena PO after discussion is up and rocking baby in nursery. holding skin to skin. baby GRECIA score dropped from 18 to 14 and is continuing to drop in presense of mom. mom is interested in treatment facility.) Subjective: called [facility] to see if [facility] have space for mom (moms preferred inpatient facility) left message for ULISSES - #[phone] ulisses is the admission coordinator and works M-F so will return the call on Tuesday they have 3 new admissions so she will not be able to get to [facility] on tuesday. [facility] [phone] and left a message and [facility] [phone] [facility] works: patient is to call everyday at 8am. needs a negative test OR a doctors note and a nexplanon in place before acceptance this information given to Colleen. Baby is being transported to [facility] brought mom in to hold baby - baby is doing markedly better on skin to skin with mom reviewed this with mom [facility] will do rooming in with mom and baby discussed plan to discharge today with baby so they can be transported together. will need to get labetalol Current Medications - Current Medications Current Medications: current BP is markedly improved / normal no indication for labetalol right now Objective - Vital Signs/Intake & Output Vital Signs: Vital Signs x48h Temp Pulse Resp BP Pulse Ox 02/12/23 07:28 91 16 118/72 96 02/12/23 06:00 84 16 122/69 97 02/12/23 05:00 84 15 122/77 100 02/12/23 04:01 90 122/79 99 02/12/23 03:50 97.7 F 91 16 129/79 100 02/12/23 03:10 82 17 126/75 98 02/12/23 02:00 86 16 146/86 H 98 Intake & Output: Intake & Output 02/09/23 02/10/23 02/11/23 02/12/23 23:59 23:59 23:59 23:59 Intake Total 2788.333 1640.833 Output Total [address] [facility] -1961.667 -2709.167 - Lab Results Fish Bones: 02/11/23 05:10 02/11/23 05:10 Other Labs: Lab Results x24hrs 02/11/23 02/11/23 02/11/23 Range/Units 12:50 10:30 05:10 Urine Opiates Screen NEGATIVE (NEGATIVE) Ur Oxycodone Screen NEGATIVE (NEGATIVE) Urine Methadone Screen NEGATIVE (NEGATIVE) Ur Propoxyphene Screen NEGATIVE (NEGATIVE) Ur Barbiturates Screen NEGATIVE (NEGATIVE) Ur Tricyclics Screen NEGATIVE (NEGATIVE) Ur Phencyclidine Scrn NEGATIVE (NEGATIVE) Ur Amphetamine Screen POSITIVE H (NEGATIVE) U Methamphetamines Scrn POSITIVE H (NEGATIVE) U Benzodiazepines Scrn NEGATIVE (NEGATIVE) Urine Cocaine Screen POSITIVE H (NEGATIVE) U Cannabinoids Screen NEGATIVE (NEGATIVE) SARS-CoV-2 (PCR) NOT DETECTED Blood Type O POSITIVE Antibody Screen NEGATIVE Assessment/Plan - Problem List (1) state Impression: all milestons met OK for discharge (2) Severe preeclampsia Impression: resolved off of mag since earlier this morning BP are wnl had 1x labetalol overnight no indication for treatment since last night so depending on her BP later this afternoon we may / may not continue treatment she is voiding well. precautions reviewed. (3) Drug addiction Impression: active she is seeking treatment setting her up for success CPS has given her a cell # messages are out to facilities and she has the resources she needs also aware of rooming in for [facility]
[2023-02-12] MEDS: FUROSEMIDE 20 MG TABLET PO SCH (10:00)
[2023-02-12] MEDS: NICOTINE 14 MG PATCH TOP SCH (10:00)
--- NOTE | 2023-02-12 10:32 | Discharge Plan ---
Discharge Plan Problem Reviewed?: Yes Disposition: Home, Self Care Condition: Fair Diet: Regular Activity Restrictions: No Restrictions Shower Restrictions: No Driving Restrictions: No Instruction Topics: Vaginal After, Preeclampsia, Alcohol Drug Use Suspect Ch Health Concerns: remember to call every day for [facility] phone number [phone] Plan of Treatment: routine discharge post isntructions precautions for preeclampsia reviewed she is doing markedly better BP wnl no BP meds on discharge will D/C today so she can follow baby and instructions regarding accessing treatment facility provided Care Goals: routine care return if severe PERRY, vis changes, or RUQ pain or if have a seizure Assessment: stable Additional Instructions or Follow Up instructions: see above No Smoking: If you smoke, Please STOP! Call for help. Follow-up with: Angel Solomon MD [Primary Care Provider] -
[2023-02-12] MEDS ORDERED: ETONOGESTREL 68 MG IMPLANT SUBQ ONE (10:42)
[2023-02-12] MEDS ORDERED: lidocaine 1% 20 ML MDV SUBQ ONE (11:00)
[2023-02-12] MEDS ORDERED: LIDOCAINE 1% 2 ML VIAL ONE (11:01)
[2023-02-12] MEDS ORDERED: lidocaine 1% 20 ML MDV ONE (11:03)
--- NOTE | 2023-02-12 11:12 | PROCEDURE REPORT ---
Hospitalist Procedure Note - Procedure Note Procedure Note: nexplanon insertion: PRE-OP DIAGNOSIS: desired long-term, reversible contraception POST-OP DIAGNOSIS: Same PROCEDURE: Nexplanon placement Performing Physician: Thiago PROCEDURE: Site: Left Arm Sterile Preparation: [_X] Alcohol Insertion site was selected 8 10 cm from medial epicondyle and marked along with guiding site using sterile marker Procedure area was prepped and draped in a sterile fashion. 5 mL of 1% lidocaine without epinephrine used for subcutaneous anesthesia. Anesthesia confirmed. Nexplanon trocar was inserted subcutaneously and then Nexplanon capsule delivered subcutaneously Trocar was removed from the insertion site. Nexplanon capsule was palpated by provider and patient to assure satisfactory placement. Estimated blood loss of 0 mL Dressings applied: Gauze/Bandaid Followup: The patient tolerated the procedure well without complications. Standard post-procedure care is explained and return precautions are given.
--- NOTE | 2023-02-12 11:23 | DISCHARGE SUMMARY ---
"Discharge Summary Admit Date: 02/11/23 Discharge Date: 02/12/23 Discharging Provider: isaac Primary Care Provider: nelli Lewis Status: Attempt Resuscitation Condition at Discharge: Fair Discharge Disposition: 01 Home, Self Care - DIAGNOSES Admission Diagnoses: labor severe preeclampsia drug addiction high risk scant care Discharge Diagnoses with Status of Each Condition: labor -- resolved severe preeclampsia -- resolved drug addiction -- follow up plan and information provided high risk -- resolved scant care -- difficulty with transportation etcetera. counseled on risks of severe preeclampsia and need for 1 week BP check - HPI History of Present Illness: pt presented in state 1 of labor - progressed through the stages and delivered healthy female infant 35m from admission. after delivery first BP taken found to have severe preE given IV labetalol x2 and started mag 24h of mag given and PO procardia given - which did not lower BP given PO labetalol x1 and BP stayed below 125 systolic for > 12h without further treatment and with mag off baby transported to [facility] for detox mom counseled and taught on skin to skin baby GRECIA score better with mom mom D/C PPD#1 in order to accompany baby and assist with period / skin to skin. precautions reviewed and info on detox access provided (in detail) CPS provided phone - CONSULTS | PROCEDURES Procedures: mag post care nexplanon placed - HOSPITAL COURSE Hospital Course: see HPI - ALLERGIES Allergies/Adverse Reactions: Allergies Allergy/AdvReac Type Severity Reaction Status Date / Time No Known Drug Allergies Allergy Verified 02/21/21 18:17 - MEDICATIONS Home Medications: Ambulatory Orders Medication Instructions Recorded Confirmed Valacyclovir HCl [Valacyclovir] 1,000 mg PO DAILY 05/22/17 02/12/23 Omeprazole 20 mg PO DAILY 06/07/17 02/12/23 Gabapentin 300 mg PO 09/04/18 Pnv No.121/Iron/Folic Acid 1 each PO DAILY #90 tablet 02/21/21 02/12/23 [ Multivitamin Tablet] Ferrous Sulfate [Feosol] 325 mg PO BID 02/12/23 02/12/23 Ibuprofen [Motrin] 600 mg PO Q6H PRN 02/12/23 02/12/23 - PHYSICAL EXAM AT DISCHARGE General Appearance: positive: No acute distress Eyes Bilateral: positive: Normal inspection ENT: positive: ENT inspection nml Neck: positive: Nml inspection Respiratory: positive: No respiratory distress, Breath sounds nml Cardiovascular: positive: Regular rate & rhythm, No murmur, No gallop Abdomen: positive: Non-tender (uterus firm below U) Back: positive: Nml inspection Skin: positive: Color nml Extremities: positive: Non-tender, Pedal edema (1+ and improving) Neurologic/Psychiatric: positive: Oriented x3 - LABS Result Diagrams: 02/11/23 05:10 02/11/23 05:10 - QUALITY (Female Hip Fx Only) Was patient sent home on osteoporosis medication?: Yes - FOLLOW UP Follow Up: 1 week with RN for BP check - TIME SPENT Time Spent in Discharge (Minutes): 60 (due to discharge detox planning and co ordination)"
--- NOTE | 2023-02-12 15:51 | PROVIDER PROGRESS NOTE ---
Subjective - Prog Note Date Prog Note Date: 02/12/23 Prog Note Time: 15:50 Objective - Vital Signs/Intake & Output Vital Signs: Vital Signs x48h BP 02/12/23 11:10 121/76 Intake & Output: Intake & Output 02/09/23 02/10/23 02/11/23 02/12/23 23:59 23:59 23:59 23:59 Intake Total 2788.333 1640.833 Output Total 4750 5000 Balance -1961.667 -3359.167 - Lab Results Fish Bones: 02/11/23 05:10 02/11/23 05:10 Other Labs: Lab Results x24hrs 02/11/23 Range/Units 05:10 Blood Type O POSITIVE Antibody Screen NEGATIVE Assessment/Plan - Problem List (2) Severe preeclampsia Impression: BP now `130 systolic -- will add labetalol 100mg PO BID as a discharge medication. anticipate it is effective and works for 12h as intended, as her overnight dose is just past 12h discussed with patient and paper Rx provided.
--- NOTE | 2023-02-12 17:03 | Labor Flowsheet ---
Labor Flowsheet Datetime Report Generated by CPN: 02/12/2023 17:03 Datetime: 02/12/2023 15:35 VITAL SIGNS NBP Sys/Aure/Mean (mmHg): 130 : 79 : 90 Pulse: 85 LaborFlag: Labor Datetime: 02/12/2023 07:15 SpO2 (%): 99 Datetime: 02/11/2023 08:24 Membranes Ruptured Date/Time: 02/11/2023 04:30 Membranes Rupture Method: Spontaneous Amniotic Fluid Color: Clear Amniotic Fluid Amount: Moderate Amniotic Fluid Odor: None Datetime: 02/11/2023 05:25 STAGE 2 Pushing: Coached on Pushing Pushing Position: Pushing with Contractions Datetime: 02/11/2023 05:20 UTERINE ACTIVITY Monitor Mode: External Frequency (min): 2 Quality: Strong Duration (sec): 80-120 Resting Tone (Palpate): Relaxed FHR Baseline Rate : 135 Variability: Moderate 6-25 bpm Accelerations: None Decelerations: Early Category: Category I Datetime: 02/11/2023 05:14 Pattern: Normal: <= 5 Contractions in 10 Minutes Datetime: 02/11/2023 05:10 ASSESSMENT A Monitor Mode: External US VAGINAL EXAM Dilatation (cm): 10.0 Effacement (%): 100 Station: 1 Exam by: J Brandyohr MD Datetime: 02/11/2023 05:06 Stage of : Labor Comments: on monitor in labor room Datetime: 02/11/2023 04:50 Vaginal Bleeding: None Cervix, Position: Anterior Datetime: 12/07/2022 18:25 PATIENT CARE I/O Interventions: Up to BR Datetime: 12/07/2022 18:04 Monitor Interventions for FHR: Ultrasound Adjusted COMMUNICATION Communication: RN at Bedside Communication Comments: RN remaining @ bedside Datetime: 12/07/2022 17:40 Provider Notified (Name): Dr. Rne
[2023-02-12 20:44] VITALS: BP 190/11
== END 2023-02-12 17:02 | disposition home or self-care (01) | DRG 806 ==
LOC: WFO 04:41 → FBP 04:42 → WFO 05:08 → FBP 05:10
PROVIDERS: ADMIT Obstetrics & Gynecology; ATTEND Obstetrics & Gynecology
PROC: 10E0XZZ Delivery of Products of Conception, External Approach (ICD-10-PCS; principal; 2023-02-11)
PROC: 0JHF3HZ Insertion of Contraceptive Device into Left Upper Arm Subcutaneous Tissue and Fascia, Percutaneous Approach (ICD-10-PCS; 2023-02-12)
DX: O11.4 Pre-existing hypertension with pre-eclampsia, complicating childbirth (principal); F11.20 Opioid dependence, uncomplicated; Z37.0 Single live birth; F15.20 Other stimulant dependence, uncomplicated; O98.52 Other viral diseases complicating childbirth; O99.324 Drug use complicating childbirth; B00.9 Herpesviral infection, unspecified; O69.81X0 Labor and delivery complicated by cord around neck, without compression, not applicable or unspecified; Z3A.39 39 weeks gestation of pregnancy; O69.89X0 Labor and delivery complicated by other cord complications, not applicable or unspecified; Z20.822 Contact with and (suspected) exposure to COVID-19
CPT/HCPCS: 36415; 80053; 80306; 85025; 86850; 86900; 86901; 87635; A9270; J7120; J7307; 99215; J3475

== ENCOUNTER 2023-07-31 21:49 | Emergency (ER) | payer MEDICAID, OTHER ==
--- NOTE | 2023-07-31 22:12 | ED Physician Documentation ---
History of Present Illness - Stated complaint Stated Complaint: FIT - Chief complaint Chief Complaint: General - History obtained from History obtained from: Patient - History of Present Illness Timing: Today - Additonal information Additional information: Shasta Talbot is a 37-year-old female with a prior history of drug use and staph infections who has been brought to the emergency department by the [facility] department to be evaluated as fit for confinement. She has no specific complaints herself with the exception of some sores on her hands and face. She has a history of untreated hypertension and baseline tachycardia. She indicates she has had trouble with drugs including meth and indicates that even when she is not taking drugs her heart rate is elevated. She indicates she has these sores on her face and hands and the left anterior thigh, similar to what she has had previously and she has had treatment for this previously to include the use of clindamycin. Review of Systems Constitutional: denies: Fever Eyes: denies: Decreased vision Ears: denies: Ear pain Nose: denies: Rhinorrhea / runny nose, Congestion Throat: denies: Sore throat Cardiac: denies: Chest pain / pressure, Palpitations Respiratory: denies: Dyspnea, Cough GI: denies: Abdominal Pain, Nausea, Vomiting, Constipation, Diarrhea : denies: Dysuria, Frequency Skin: reports: Lesions Musculoskeletal: denies: Neck pain, Back pain, Extremity pain Neurologic: denies: Generalized weakness, Focal weakness, Numbness PD PAST MEDICAL HISTORY - Past Medical History Past Medical History: Yes Cardiovascular: None, Hypertension Respiratory: None Neuro: None Endocrine/Autoimmune: None GI: GERD : None HEENT: None Psych: Anxiety Musculoskeletal: Other Derm: Other - Past Surgical History Past Surgical History: Yes /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: Dilation and currettage, Other - Present Medications Home Medications: Ambulatory Orders Medication Instructions Recorded Confirmed Valacyclovir HCl [Valacyclovir] 1,000 mg PO DAILY 05/22/17 07/31/23 Omeprazole 20 mg PO DAILY 06/07/17 07/31/23 Pnv No.121/Iron/Folic Acid 1 each PO DAILY #90 tablet 02/21/21 07/31/23 [ Multivitamin Tablet] Labetalol [Trandate] 100 mg PO BID 42 Days #84 tablet 02/12/23 Clindamycin [Cleocin] 300 mg PO Q6H 7 Days #28 cap 07/31/23 Mupirocin 2% Oint [Bactroban 2% 1 applic TOP BID #22 gm 07/31/23 Oint] - Allergies Allergies/Adverse Reactions: Allergies Allergy/AdvReac Type Severity Reaction Status Date / Time No Known Drug Allergies Allergy Verified 07/31/23 21:53 - Social History Does the pt smoke?: Yes Smoking Status: Current every day smoker Does the pt drink ETOH?: Yes Does the pt have substance abuse?: No Substance Use and Type: Meth - Immunizations Immunizations are current?: Yes Immunizations: TDAP >10years/unknown - POLST Patient has POLST: No PD ED PE NORMAL - Vitals Vital signs reviewed: Yes (tachy and hypertensive) - General General: Alert and oriented X 3, No acute distress, Well developed/nourished - HEENT HEENT: Atraumatic, PERRL, EOMI, Other (There are skin changes to the face especially over the left nasolabila area and left cheek with erythema, scaling and skin breakdown. 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, No motor deficit, No sensory deficit, Normal speech Eye Opening: Spontaneous Motor: Obeys Commands Verbal: Oriented GCS Score: 15 - Psych Psych: Normal mood, Normal affect Results - Vitals Vitals: Vital Signs - 24 hr 07/31/23 07/31/23 21:56 22:27 Temperature 36.9 C Heart Rate 117 H 107 H Respiratory 12 12 Rate Blood Pressure 166/112 H 117/103 H O2 Saturation 97 98 Oxygen O2 Source Room air PD Medical Decision Making - ED course Complexity details: reviewed old records, considered differential, d/w patient ED course: 37-year-old female brought into the emergency department for evaluation for fit for confinement. She does have some superficial skin infection to the face and hands and I have recommended treatment with clindamycin and mupirocin. Departure - Departure Disposition: 01 Home, Self Care Clinical Impression: Staph skin infection Condition: Stable Instructions: ED Staph Infec Abx Tx Only Follow-Up: Primary Care Maria C [Provider Group] Prescriptions: Mupirocin 2% Oint [Bactroban 2% Oint] 1 applic TOP BID #22 gm Clindamycin [Cleocin] 300 mg PO Q6H 7 Days #28 cap Comments: Colleen, today it looks like you have staph infection to your hands, face and thigh. I have written scripts for both clindamycin and bactoban for treatment of this. Forms: PCP List Discharge Date/Time: 07/31/23 22:27
[2023-07-31 22:30] VITALS: BP 117/103; O2SAT 98
== END 2023-07-31 22:27 | disposition home or self-care (01) ==
LOC: ED 21:49
DX: Z02.89 Encounter for other administrative examinations (principal); L08.9 Local infection of the skin and subcutaneous tissue, unspecified; B95.8 Unspecified staphylococcus as the cause of diseases classified elsewhere; I10 Essential (primary) hypertension; F17.200 Nicotine dependence, unspecified, uncomplicated; Z79.899 Other long term (current) drug therapy
CPT/HCPCS: 99282; 99283